=== PATIENT | male | born 1980 | race Caucasian/White ===

== ENCOUNTER 2022-04-27 08:03 | Outpatient (RCR) | payer OTHER, SELFPAY ==
--- NOTE | 2022-04-27 10:42 | PT.OPPOC ---
Physical, Occupational & Speech Therapy At [facility] Current Diagnoses Low back pain, unspecified (04/27/22) Visit Care Team Role Provider Type Tayla Adkins MD Family Provider Non-Staff Primary Care Provider Specialty: Medical Address: [address], [address] Email: Rojas Price DO Attending Provider Non-Staff Referring Provider Specialty: Medical Address: [facility], [address] [place] [address], [address] Phone: Email: Plan Of Care PT-OP-T Assessment and Plan Start: 04/26/22 16:45 Freq: Status: Active Protocol: Document 04/27/22 08:13 SAK (Rec: 04/27/22 08:51 SAK [id number]) Physical Therapy Assessment Rehab Potential Rehabilitation Potential Good Evaluation Complexity Number of Personal Factors/Comorbidities 1-2 Number of Body Systems Impaired 3 Clinical Presentation at Evaluation Evolving Impairments Impairments Balance,Pain,ROM,Strength Goals Four Impairment Oswestry disability index score 16% Fpc Goal (LTG) Decrease Oswestry score to no greater than 5% as measure of improved activity tolerance Three Impairment weakness in hips, core Short Term Goal (STG) Patient to be instructed in HEP to address muscle weakness and stab to support therapy activities in clinic. STG Duration 05/10/22 Fpc Goal (LTG) Patient to demonstrate 5/5 muscle strength all hip and core muscle groups LTG Duration 06/25/22 Two Impairment postural dysfunction contributing to pain Short Term Goal (STG) Patient to be instructed in neutral postural alignment, and contribution of postural dysfunction to pain STG Duration 05/10/22 Fpc Goal (LTG) Patient to self-identify postural habits and positioning which may be contributing to pain and be able to self-correct posture and demonstrate good progress toward change of habits for improved function LTG Duration 06/25/22 One Impairment lumbar spine and right hip pain as high as 3/10 Operations Agent Goal (LTG) Decrease pain level to 0-1/10 with all usual activities LTG Duration 06/25/22 Assessment Summary Assessment Patient presents to PT with function-limiting LBP and right hip pain of gradual onset. Wants to decrease his pain learn exercises to self- manage, and know what to do to prevent back pain in the future. PT evaluation reveals postural dysfunction: posterior positioning of thorax on pelvis, forward head , rounded shoulders, hyperextended knees, genu varum, ER left LE, dec arch height. Decreased strength right hip abductiors, tightness isaac quads and hip flexors. Patient spends a lot of time sitting for work, and discussed possible benefits of sit to stand desk for use at work. Feel source of patient's pain is musculoskeletal with muscle asymmetries, postural dysfunction, likely positional and movement habits. Feel he would benefit from PT to decrease his pain, improve his posture and address musculature asymmetries. POC discussed and he is in agreement. Physical Therapy Plan Frequency and Duration Frequency of Treatment 12 visits Duration of treatment (weeks) 8 Plan of Care Start Date 04/27/22 Plan of Care End Date 06/24/22 Therapeutic Interventions Therapeutic Interventions Home Exercise Program,Manual Therapy,Patient/Caregiver Education,Self-Care/Home Management,Soft Tissue Mobilization,Taping, Therapeutic Activities, Therapeutic Exercises Modalities Cold Pack/Ice Massage,Electric Stimulation,Hot Packs, Ultrasound Next Visit Focus/Plan Next Note Type Treatment Note Next Visit Plan Review HEP, continue strengthening and flexibility exercise progression. Review self-examination of positioning and body mechanics with patient education as indicated. Plan of Care Dates Plan of Care Start Date 04/27/22 Plan of Care End Date 06/24/22 Electronically Signed by: Mckenzie Gilmore, PT 05/01/22 [id number] If you are in agreement with this Plan of Care, please return a signed and dated copy. I have reviewed this Plan of Care and certify that the skilled therapy services above are required to meet the patient?s needs. Physician Signature Date Printed Name and Credentials Clinical Instructor Signature Printed Name and Credentials
--- NOTE | 2022-04-27 10:42 | PT.OIE ---
Current Diagnoses Low back pain, unspecified (04/27/22) Visit Care Team Role Provider Type Tayla Adkins MD Family Provider Non-Staff Primary Care Provider Specialty: Medical Address: [address], [address] Email: Rojas Price DO Attending Provider Non-Staff Referring Provider Specialty: Medical Address: [facility], [address] [place] [address], [address] Phone: Email: Physical Therapy Initial Evaluation PT-OP-A Visit Information Start: 04/26/22 16:45 Freq: Status: Active Protocol: Document 04/27/22 08:13 SAK (Rec: 04/27/22 08:51 SAK [id number]) Out-Patient Physical Therapy Visit Information Visit Information Visit Type Initial Evaluation Visit Start Time 08:15 Visit Stop Time 09:00 Total Visit Minutes 45 Visit Number 1 Evaluation Information Evaluation Date 04/27/22 PT-OP-B Current Condition Start: 04/26/22 16:45 Freq: Status: Active Protocol: Document 04/27/22 08:13 SAK (Rec: 04/27/22 08:51 SAK [id number]) Current Condition History of Current Condition Onset Date 2 years Current Complaints pain low back and right hip History of Current Condition gradual onset dull achey pain low back and right lateral hip no known cause. 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 Activity level/exercise: jog 1x/wk, pushups and pull ups 2x/wk, squats. Sleeps on side. When it hurts tries to stretch, change position. Prior Treatments and Tests No imaging. 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 [employer] Current Functional Impairments (Reported) Functional Limitations- ADL's painful Functional Limitations- Mobility/Gait painful Functional Limitations- Work/School painful especially prolonged sitting Personal Factors Other Personal Factors That May Effect Patient spends a lot of time Therapy/Recovery sitting PT-OP-C Subjective Start: 04/26/22 16:45 Freq: Status: Active Protocol: Document 04/27/22 08:14 SAK (Rec: 05/01/22 10:39 [facility] [id number]) Patient Questionnaires Oswestry Low Back Index Oswestry Score 16 OP-PT Pain Assessment Pain Assessment Grid Paper Pain Assessment Grid Completed Yes Location right lateral hip, l/s Intensity 4 Description Aching,Pressure Frequency Frequent Pain Alleviating Factors Rest Home Pain Medication Use Pain Medications Used No PT-OP-H Neuro Start: 04/26/22 16:45 Freq: Status: Active Protocol: Document 04/27/22 08:14 [facility] (Rec: 05/01/22 10:39 [facility] [id number]) Sensation Evaluation Gross Sensation Gross Sensation WNL PT-OP-J Posture/Palpation/Skin Start: 04/26/22 16:45 Freq: Status: Active Protocol: Document 04/27/22 08:14 [facility] (Rec: 05/01/22 10:39 [facility] [id number]) Posture Evaluation Position Standing Head/C-Spine Posture Forward Head T-Spine Posture Increased Kyphosis L-Spine Posture Increased Lordosis Weight Distribution Weight Shifted Posterior Hip Posture (R) Externally Rotated Knee Posture (R) Genu Varus Ankle/Foot Posture (L) Pronated,(R) Pronated Palpation Assessment Location lumbar spine Palpation Findings Soft Tissue Tightness, Tenderness Palpation Details right lumbar paraspinals PT-OP-K Range of Motion Start: 04/26/22 16:45 Freq: Status: Active Protocol: Document 04/27/22 08:14 [facility] (Rec: 05/01/22 10:39 [facility] [id number]) Hip Goniometric Range of Motion Hip isaac Hip ROM WFL No Comments mod tightness quads and hip flex PT-OP-M Strength Start: 04/26/22 16:45 Freq: Status: Active Protocol: Document 04/27/22 08:14 [facility] (Rec: 05/01/22 10:39 [facility] [id number]) Hip Strength Hip Manual Muscle Testing Right Flexion (L2) 4 Good Extension (S1) 4- Good- Abduction 4- Good- Adduction 4+ Good+ External Rotation 4- Good- Internal Rotation 4+ Good+ Left Flexion (L2) 4+ Good+ Extension (S1) 4 Good Abduction 4+ Good+ Adduction 4+ Good+ External Rotation 4 Good Internal Rotation 4+ Good+ Knee Strength Knee Manual Muscle Testing isaac Flexion (S2) 5 Normal Extension (L3) 5 Normal PT-OP-Q Treatments Start: 04/26/22 16:45 Freq: Status: Active Protocol: Document 04/27/22 08:14 SAK (Rec: 05/01/22 10:39 [facility] [id number]) Self-Care/Home Management Treatment Education Patient Education Home Exercise Program,Pain Management,Posture Other Education educated in typical contribution to pain of postural and positional asymmetries and movements, and recommended self-examination; patient demonstrated good understanding and agreement. Discussed benefits of sit to stand desk. PT-OP-T Assessment and Plan Start: 04/26/22 16:45 Freq: Status: Active Protocol: Document 04/27/22 08:13 SAK (Rec: 04/27/22 08:51 [facility] [id number]) Physical Therapy Assessment Rehab Potential Rehabilitation Potential Good Evaluation Complexity Number of Personal Factors/Comorbidities 1-2 Number of Body Systems Impaired 3 Clinical Presentation at Evaluation Evolving Impairments Impairments Balance,Pain,ROM,Strength Goals Four Impairment Oswestry disability index score 16% Intermediate Goal (LTG) Decrease Oswestry score to no greater than 5% as measure of improved activity tolerance Three Impairment weakness in hips, core Short Term Goal (STG) Patient to be instructed in HEP to address muscle weakness and stab to support therapy activities in clinic. STG Duration 05/10/22 City Plant Supervisor Goal (LTG) Patient to demonstrate 5/5 muscle strength all hip and core muscle groups LTG Duration 06/25/22 Two Impairment postural dysfunction contributing to pain Short Term Goal (STG) Patient to be instructed in neutral postural alignment, and contribution of postural dysfunction to pain STG Duration 05/10/22 Intermediate Goal (LTG) Patient to self-identify postural habits and positioning which may be contributing to pain and be able to self-correct posture and demonstrate good progress toward change of habits for improved function LTG Duration 06/25/22 One Impairment lumbar spine and right hip pain as high as 3/10 Intermediate Goal (LTG) Decrease pain level to 0-1/10 with all usual activities LTG Duration 06/25/22 Assessment Summary Assessment Patient presents to PT with function-limiting LBP and right hip pain of gradual onset. Wants to decrease his pain learn exercises to self- manage, and know what to do to prevent back pain in the future. PT evaluation reveals postural dysfunction: posterior positioning of thorax on pelvis, forward head , rounded shoulders, hyperextended knees, genu varum, ER left LE, dec arch height. Decreased strength right hip abductiors, tightness isaac quads and hip flexors. Patient spends a lot of time sitting for work, and discussed possible benefits of sit to stand desk for use at work. Feel source of patient's pain is musculoskeletal with muscle asymmetries, postural dysfunction, likely positional and movement habits. Feel he would benefit from PT to decrease his pain, improve his posture and address musculature asymmetries. POC discussed and he is in agreement. Physical Therapy Plan Frequency and Duration Frequency of Treatment 12 visits Duration of treatment (weeks) 8 Plan of Care Start Date 04/27/22 Plan of Care End Date 06/24/22 Therapeutic Interventions Therapeutic Interventions Home Exercise Program,Manual Therapy,Patient/Caregiver Education,Self-Care/Home Management,Soft Tissue Mobilization,Taping, Therapeutic Activities, Therapeutic Exercises Modalities Cold Pack/Ice Massage,Electric Stimulation,Hot Packs, Ultrasound Next Visit Focus/Plan Next Note Type Treatment Note Next Visit Plan Review HEP, continue strengthening and flexibility exercise progression. Review self-examination of positioning and body mechanics with patient education as indicated.
--- NOTE | 2022-05-01 10:42 | PT.OIE ---
Current Diagnoses Low back pain, unspecified (04/27/22) Visit Care Team Role Provider Type Tayla Adkins MD Family Provider Non-Staff Primary Care Provider Specialty: Medical Address: [address], [address] Email: Rojas Price DO Attending Provider Non-Staff Referring Provider Specialty: Medical Address: [facility], [address] [place] [address], [address] Phone: Email: Physical Therapy Initial Evaluation PT-OP-A Visit Information Start: 04/26/22 16:45 Freq: Status: Active Protocol: Document 04/27/22 08:13 SAK (Rec: 04/27/22 08:51 SAK [id number]) Out-Patient Physical Therapy Visit Information Visit Information Visit Type Initial Evaluation Visit Start Time 08:15 Visit Stop Time 09:00 Total Visit Minutes 45 Visit Number 1 Evaluation Information Evaluation Date 04/27/22 PT-OP-B Current Condition Start: 04/26/22 16:45 Freq: Status: Active Protocol: Document 04/27/22 08:13 SAK (Rec: 04/27/22 08:51 SAK [id number]) Current Condition History of Current Condition Onset Date 2 years Current Complaints pain low back and right hip History of Current Condition gradual onset dull achey pain low back and right lateral hip no known cause. 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 Activity level/exercise: jog 1x/wk, pushups and pull ups 2x/wk, squats. Sleeps on side. When it hurts tries to stretch, change position. Prior Treatments and Tests No imaging. 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 [employer] Current Functional Impairments (Reported) Functional Limitations- ADL's painful Functional Limitations- Mobility/Gait painful Functional Limitations- Work/School painful especially prolonged sitting Personal Factors Other Personal Factors That May Effect Patient spends a lot of time Therapy/Recovery sitting PT-OP-C Subjective Start: 04/26/22 16:45 Freq: Status: Active Protocol: Document 04/27/22 08:14 SAK (Rec: 05/01/22 10:39 [facility] [id number]) Patient Questionnaires Oswestry Low Back Index Oswestry Score 16 OP-PT Pain Assessment Pain Assessment Grid Paper Pain Assessment Grid Completed Yes Location right lateral hip, l/s Intensity 4 Description Aching,Pressure Frequency Frequent Pain Alleviating Factors Rest Home Pain Medication Use Pain Medications Used No PT-OP-H Neuro Start: 04/26/22 16:45 Freq: Status: Active Protocol: Document 04/27/22 08:14 [facility] (Rec: 05/01/22 10:39 [facility] [id number]) Sensation Evaluation Gross Sensation Gross Sensation WNL PT-OP-J Posture/Palpation/Skin Start: 04/26/22 16:45 Freq: Status: Active Protocol: Document 04/27/22 08:14 [facility] (Rec: 05/01/22 10:39 [facility] [id number]) Posture Evaluation Position Standing Head/C-Spine Posture Forward Head T-Spine Posture Increased Kyphosis L-Spine Posture Increased Lordosis Weight Distribution Weight Shifted Posterior Hip Posture (R) Externally Rotated Knee Posture (R) Genu Varus Ankle/Foot Posture (L) Pronated,(R) Pronated Palpation Assessment Location lumbar spine Palpation Findings Soft Tissue Tightness, Tenderness Palpation Details right lumbar paraspinals PT-OP-K Range of Motion Start: 04/26/22 16:45 Freq: Status: Active Protocol: Document 04/27/22 08:14 [facility] (Rec: 05/01/22 10:39 [facility] [id number]) Hip Goniometric Range of Motion Hip isaac Hip ROM WFL No Comments mod tightness quads and hip flex PT-OP-M Strength Start: 04/26/22 16:45 Freq: Status: Active Protocol: Document 04/27/22 08:14 [facility] (Rec: 05/01/22 10:39 [facility] [id number]) Hip Strength Hip Manual Muscle Testing Right Flexion (L2) 4 Good Extension (S1) 4- Good- Abduction 4- Good- Adduction 4+ Good+ External Rotation 4- Good- Internal Rotation 4+ Good+ Left Flexion (L2) 4+ Good+ Extension (S1) 4 Good Abduction 4+ Good+ Adduction 4+ Good+ External Rotation 4 Good Internal Rotation 4+ Good+ Knee Strength Knee Manual Muscle Testing isaac Flexion (S2) 5 Normal Extension (L3) 5 Normal PT-OP-Q Treatments Start: 04/26/22 16:45 Freq: Status: Active Protocol: Document 04/27/22 08:14 SAK (Rec: 05/01/22 10:39 [facility] [id number]) Self-Care/Home Management Treatment Education Patient Education Home Exercise Program,Pain Management,Posture Other Education educated in typical contribution to pain of postural and positional asymmetries and movements, and recommended self-examination; patient demonstrated good understanding and agreement. Discussed benefits of sit to stand desk. PT-OP-T Assessment and Plan Start: 04/26/22 16:45 Freq: Status: Active Protocol: Document 04/27/22 08:13 SAK (Rec: 04/27/22 08:51 [facility] [id number]) Physical Therapy Assessment Rehab Potential Rehabilitation Potential Good Evaluation Complexity Number of Personal Factors/Comorbidities 1-2 Number of Body Systems Impaired 3 Clinical Presentation at Evaluation Evolving Impairments Impairments Balance,Pain,ROM,Strength Goals Four Impairment Oswestry disability index score 16% Fpc Goal (LTG) Decrease Oswestry score to no greater than 5% as measure of improved activity tolerance Three Impairment weakness in hips, core Short Term Goal (STG) Patient to be instructed in HEP to address muscle weakness and stab to support therapy activities in clinic. STG Duration 05/10/22 Damper Fitter Goal (LTG) Patient to demonstrate 5/5 muscle strength all hip and core muscle groups LTG Duration 06/25/22 Two Impairment postural dysfunction contributing to pain Short Term Goal (STG) Patient to be instructed in neutral postural alignment, and contribution of postural dysfunction to pain STG Duration 05/10/22 Fpc Goal (LTG) Patient to self-identify postural habits and positioning which may be contributing to pain and be able to self-correct posture and demonstrate good progress toward change of habits for improved function LTG Duration 06/25/22 One Impairment lumbar spine and right hip pain as high as 3/10 Fpc Goal (LTG) Decrease pain level to 0-1/10 with all usual activities LTG Duration 06/25/22 Assessment Summary Assessment Patient presents to PT with function-limiting LBP and right hip pain of gradual onset. Wants to decrease his pain learn exercises to self- manage, and know what to do to prevent back pain in the future. PT evaluation reveals postural dysfunction: posterior positioning of thorax on pelvis, forward head , rounded shoulders, hyperextended knees, genu varum, ER left LE, dec arch height. Decreased strength right hip abductiors, tightness isaac quads and hip flexors. Patient spends a lot of time sitting for work, and discussed possible benefits of sit to stand desk for use at work. Feel source of patient's pain is musculoskeletal with muscle asymmetries, postural dysfunction, likely positional and movement habits. Feel he would benefit from PT to decrease his pain, improve his posture and address musculature asymmetries. POC discussed and he is in agreement. Physical Therapy Plan Frequency and Duration Frequency of Treatment 12 visits Duration of treatment (weeks) 8 Plan of Care Start Date 04/27/22 Plan of Care End Date 06/24/22 Therapeutic Interventions Therapeutic Interventions Home Exercise Program,Manual Therapy,Patient/Caregiver Education,Self-Care/Home Management,Soft Tissue Mobilization,Taping, Therapeutic Activities, Therapeutic Exercises Modalities Cold Pack/Ice Massage,Electric Stimulation,Hot Packs, Ultrasound Next Visit Focus/Plan Next Note Type Treatment Note Next Visit Plan Review HEP, continue strengthening and flexibility exercise progression. Review self-examination of positioning and body mechanics with patient education as indicated.
--- NOTE | 2022-05-11 08:56 | PT-OP ANOTE ---
cancelled due to unable to make appointment time
--- NOTE | 2022-11-09 13:03 | PT.OPDS ---
Current Diagnoses Low back pain, unspecified (04/27/22) Visit Care Team Role Provider Type Tayla Adkins MD Family Provider Non-Staff Primary Care Provider Specialty: Medical Address: [address], [address] Email: Rojas Price DO Attending Provider Non-Staff Referring Provider Specialty: Medical Address: [facility], [address] [place] [address], [address] Phone: Email: Visit Number Visit Number 1 Discharge Summary PT-OP-B Current Condition Start: 04/26/22 16:45 Freq: Status: Active Protocol: Document 04/27/22 08:13 SAK (Rec: 04/27/22 08:51 [facility] [id number]) Current Condition History of Current Condition Onset Date 2 years Current Complaints pain low back and right hip History of Current Condition gradual onset dull achey pain low back and right lateral hip no known cause. 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 Activity level/exercise: jog 1x/wk, pushups and pull ups 2x/wk, squats. Sleeps on side. When it hurts tries to stretch, change position. Prior Treatments and Tests No imaging. 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 [employer] Current Functional Impairments (Reported) Functional Limitations- ADL's painful Functional Limitations- Mobility/Gait painful Functional Limitations- Work/School painful especially prolonged sitting Personal Factors Other Personal Factors That May Effect Patient spends a lot of time Therapy/Recovery sitting PT-OP-C Subjective Start: 04/26/22 16:45 Freq: Status: Active Protocol: Document 04/27/22 08:14 SAK (Rec: 05/01/22 10:39 SAK [id number]) Patient Questionnaires Oswestry Low Back Index Oswestry Score 16 OP-PT Pain Assessment Pain Assessment Grid Paper Pain Assessment Grid Completed Yes Location right lateral hip, l/s Intensity 4 Description Aching,Pressure Frequency Frequent Pain Alleviating Factors Rest Home Pain Medication Use Pain Medications Used No PT-OP-H Neuro Start: 04/26/22 16:45 Freq: Status: Active Protocol: Document 04/27/22 08:14 [facility] (Rec: 05/01/22 10:39 [facility] [id number]) Sensation Evaluation Gross Sensation Gross Sensation WNL PT-OP-J Posture/Palpation/Skin Start: 04/26/22 16:45 Freq: Status: Active Protocol: Document 04/27/22 08:14 [facility] (Rec: 05/01/22 10:39 [facility] [id number]) Posture Evaluation Position Standing Head/C-Spine Posture Forward Head T-Spine Posture Increased Kyphosis L-Spine Posture Increased Lordosis Weight Distribution Weight Shifted Posterior Hip Posture (R) Externally Rotated Knee Posture (R) Genu Varus Ankle/Foot Posture (L) Pronated,(R) Pronated Palpation Assessment Location lumbar spine Palpation Findings Soft Tissue Tightness, Tenderness Palpation Details right lumbar paraspinals PT-OP-K Range of Motion Start: 04/26/22 16:45 Freq: Status: Active Protocol: Document 04/27/22 08:14 [facility] (Rec: 05/01/22 10:39 [facility] [id number]) Hip Goniometric Range of Motion Hip isaac Hip ROM WFL No Comments mod tightness quads and hip flex PT-OP-M Strength Start: 04/26/22 16:45 Freq: Status: Active Protocol: Document 04/27/22 08:14 [facility] (Rec: 05/01/22 10:39 [facility] [id number]) Hip Strength Hip Manual Muscle Testing Right Flexion (L2) 4 Good Extension (S1) 4- Good- Abduction 4- Good- Adduction 4+ Good+ External Rotation 4- Good- Internal Rotation 4+ Good+ Left Flexion (L2) 4+ Good+ Extension (S1) 4 Good Abduction 4+ Good+ Adduction 4+ Good+ External Rotation 4 Good Internal Rotation 4+ Good+ Knee Strength Knee Manual Muscle Testing isaac Flexion (S2) 5 Normal Extension (L3) 5 Normal PT-OP-T Assessment and Plan Start: 04/26/22 16:45 Freq: Status: Active Protocol: Document 11/09/22 13:02 SAK (Rec: 11/09/22 13:03 [facility] [id number]) Physical Therapy Plan Discharge Physical Therapy Discharge Reasons No Longer Attending PT
== END 2022-11-15 16:10 | disposition home or self-care (01) ==
LOC: PHYS 08:03
PROVIDERS: Family Provider Student in an Organized Health Care Education/Training Program; PCP Student in an Organized Health Care Education/Training Program; Referring Provider Preventive Medicine Aerospace Medicine; Visit Provider Preventive Medicine Aerospace Medicine
DX: M54.50 Low back pain, unspecified (principal)
CPT/HCPCS: 97161; 97535

== ENCOUNTER 2023-08-31 08:15 | Outpatient (RCR) | payer OTHER, SELFPAY ==
--- NOTE | 2023-07-23 16:33 | PT.OIE ---
Current Diagnoses Pain in right hip (07/23/23) Low back pain, unspecified (07/23/23) Abnormal posture (07/23/23) Weakness (07/23/23) Visit Care Team Role Provider Type Tayla Adkins MD Attending Provider Non-Staff Family Provider Primary Care Provider Referring Provider Specialty: Medical Address: [address], [address] Email: Physical Therapy Initial Evaluation PT-OP-A Visit Information Start: 07/23/23 08:04 Freq: Status: Active Protocol: Document 07/23/23 08:13 SAK (Rec: 07/23/23 09:08 SAK [id number]) Out-Patient Physical Therapy Visit Information Visit Information Visit Type Initial Evaluation Visit Start Time 08:15 Visit Number 1 Evaluation Information Evaluation Date 07/23/23 PT-OP-B Current Condition Start: 07/23/23 08:04 Freq: Status: Active Protocol: Document 07/23/23 08:13 SAK (Rec: 07/23/23 09:08 SAK [id number]) Current Condition History of Current Condition Onset Date 2 years Current Complaints LBP, right hip pain History of Current Condition HIstory LBP and right hip pain . No precipitating even. Potentially exercise induced; gets worse when more active. Sometimes interrups sleep, stretching improves it a little. Right famur fracture 6th grade. 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 Reports feels hip very tight especially laterally. Massage at lateral posterior hips dec pain. Denies N/T. Pain ranges from 3-7. Also strained tendon left foot, has ordered custom orthotics for feet. Prior Treatments and Tests 1 episode PT. Treatment Goals Patient/Caregiver Goals Dec pain, improve sleep and function. Would like to run 10k or 1/2 marathon, lift weights without an increase in pain. PT-OP-C Subjective Start: 07/23/23 08:04 Freq: Status: Active Protocol: Document 07/23/23 08:13 SAK (Rec: 07/23/23 16:32 SAK [id number]) OP-PT Pain Assessment Home Pain Medication Use Pain Medications Used No Pain Behaviors Pain Behaviors Facial Grimacing PT-OP-D Balance Start: 07/23/23 08:04 Freq: Status: Active Protocol: Document 07/23/23 08:13 SAK (Rec: 07/23/23 16:32 SAK [id number]) OP-PT Balance Assessment Sitting Balance Static Sitting Balance Ability Normal Dynamic Sitting Balance Ability Normal Standing Balance Static Standing Balance Ability Normal Dynamic Standing Balance Ability Normal Shipley Fall Scale Copyright Permission PT-OP-G Mobility & Gait Start: 07/23/23 08:04 Freq: Status: Active Protocol: Document 07/23/23 08:13 SAK (Rec: 07/23/23 16:32 SAK [id number]) OP Gait Assessment Gait Gait Assistance Required: Independent Assistive Devices Assistive Device None PT-OP-H Neuro Start: 07/23/23 08:04 Freq: Status: Active Protocol: Document 07/23/23 08:13 SAK (Rec: 07/23/23 16:32 SAK [id number]) Sensation Evaluation Gross Sensation Gross Sensation WNL PT-OP-J Posture/Palpation/Skin Start: 07/23/23 08:04 Freq: Status: Active Protocol: Document 07/23/23 08:13 SAK (Rec: 07/23/23 09:08 SAK [id number]) Posture Evaluation Position Standing Head/C-Spine Posture Forward Head T-Spine Posture Increased Kyphosis Pelvis Posture Anteriorly Tilted Weight Distribution Weight Shifted Left Hip Posture (R) Externally Rotated,(R) Abducted Knee Posture (L) Genu Recurvatum,(R) Genu Recurvatum Palpation Assessment Location SI Palpation Findings Soft Tissue Tightness, Tenderness Palpation Details right PT-OP-K Range of Motion Start: 07/23/23 08:04 Freq: Status: Active Protocol: Document 07/23/23 08:13 SAK (Rec: 07/23/23 16:32 [facility] [id number]) Hip Goniometric Range of Motion Hip Right Flexion w/Knee Flexed 100 Straight Leg Raise 55 Extension 15 Abduction 25 Internal Rotation 35 External Rotation 40 Left Flexion w/Knee Flexed 100 Straight Leg Raise 65 Extension 15 Abduction 40 Internal Rotation 25 External Rotation 40 Hip ROM Limitations Hip ROM Limitations Soft Tissue Tightness Knee Goniometric Range of Motion Knee isaac Knee ROM WFL Yes PT-OP-L Special Tests Start: 07/23/23 08:04 Freq: Status: Active Protocol: Document 07/23/23 08:13 SAK (Rec: 07/23/23 16:32 SAK [id number]) Special Tests Lumbar Spine Special Tests Straight Leg Raise Test Results - Compression Test Results - Standing Flexion Test Results - Other Special Tests Special Tests SI gapping decreased pain on right PT-OP-M Strength Start: 07/23/23 08:04 Freq: Status: Active Protocol: Document 07/23/23 08:13 [facility] (Rec: 07/23/23 09:08 [facility] [id number]) Trunk Strength Trunk Manual Muscle Testing Flexion 4 Good Extension 4 Good Hip Strength Hip Manual Muscle Testing Left Flexion (L2) 4- Good- Extension (S1) 4- Good- Abduction 4+ Good+ Adduction 4+ Good+ External Rotation 4+ Good+ Internal Rotation 4+ Good+ Right Flexion (L2) 4+ Good+ Extension (S1) 4- Good- Abduction 4 Good Adduction 4+ Good+ External Rotation 4 Good Internal Rotation 4 Good Knee Strength Knee Manual Muscle Testing isaac Flexion (S2) 5 Normal Extension (L3) 5 Normal PT-OP-Q Treatments Start: 07/23/23 08:04 Freq: Status: Active Protocol: Document 07/23/23 08:13 [facility] (Rec: 07/23/23 16:32 [facility] [id number]) Self-Care/Home Management Treatment Education Patient Education Body Mechanics,Home Exercise Program,Posture Other Education bed positioning including pillow under entire top leg, and towel under waist; reports feeling of improved support and comfort issued written HEP HO PT-OP-T Assessment and Plan Start: 07/23/23 08:04 Freq: Status: Active Protocol: Document 07/23/23 08:13 [facility] (Rec: 07/23/23 16:32 [facility] [id number]) Physical Therapy Assessment Rehab Potential Rehabilitation Potential Good Evaluation Complexity Number of Personal Factors/Comorbidities 1-2 Number of Body Systems Impaired 3 Clinical Presentation at Evaluation Evolving Impairments Impairments Activity Tolerance,Functional Activities,Pain,Posture,Soft Tissue Mobility Goals Three Impairment muscular imbalances Short Term Goal (STG) Patient to be instructed in individualized progressive HEP for purposes of flexibility and strengthening STG Duration 08/22/23 Change Management Specialist Goal (LTG) Patient to demonstrate LE and lumbar flexibility WNL and strength to 08/11 to allow him to return to prior level of function Two Impairment postural dysfunction Impairment posterior positioning of thorax, exces ER right hip, dec right LE weight-bearing, posterior rotated innominate Short Term Goal (STG) Patient able to self-correct posture with min cues and do self assessment of habitual positioning and movement that may be contributory to pain STG Duration 08/22/23 Skilled Nursing Goal (LTG) Patient able to achieve neutral postural alignment and demonstrate ability to self- correct pelvic alignment as needed LTG Duration 09/22/23 One Impairment Decreased functional activity tolerance Impairment Oswestrsy disability index score 18% Short Term Goal (STG) Decrease Oswestry score to no greater than 9% as measure of improved activity toerance STG Duration 08/22/23 Skilled Nursing Goal (LTG) Decrease Oswestry disability index score to no greater than 4% as measure of improved activity tolerance and return to prior level of function including sleeping without pain, jogging, and lifting weights without pain. LTG Duration 09/22/23 Assessment Summary Assessment Patient presents to PT with function-limiting pain in his low back and right hip of a chronic nature with no known cause, gradual progression. The pain interrupts his sleep and keeps him from doing usual physical activity due to increased pain with physical activity. Patient denies numbness or tingling. 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 Evaluation reveals postural dysfunction with post rotated right innominate, ER right LE, weakness throughout hips and lumbar spine, decreased hip and low back flexibility. Posterior gapping of his right SI decreased pain. He has poor accessory motion in isaac hips right greater than left. FEel he would benefit from physical therapy to improve his muscle imbalances and posture, and help him to return to prior level of function including ability to jog without an increase in pain, and to not be woken due to pain. . Patient is highly motivated. POC was discussed and he was in agreement. Physical Therapy Plan Frequency and Duration Frequency of Treatment 2x/Week Duration of treatment (weeks) 8 Plan of Care Start Date 07/23/23 Plan of Care End Date 09/22/23 Therapeutic Interventions Therapeutic Interventions Home Exercise Program,Joint Mobilizations,Manual Therapy, Patient/Caregiver Education, Self-Care/Home Management,Soft Tissue Mobilization,Taping, Therapeutic Activities, Therapeutic Exercises Modalities Cold Pack/Ice Massage,Electric Stimulation,Hot Packs, Infrared Therapy,Traction- Mechanical,Ultrasound Next Visit Focus/Plan Next Note Type Treatment Note Next Visit Plan Review HEP, provide manual therapy to improve pelvic alignment and decrease soft tissue tension right SI. Progress ther ex as tolerated. Modalities PRN pain.
--- NOTE | 2023-07-23 16:33 | PT.OPPOC ---
Physical, Occupational & Speech Therapy At [facility] Current Diagnoses Pain in right hip (07/23/23) Low back pain, unspecified (07/23/23) Abnormal posture (07/23/23) Weakness (07/23/23) Visit Care Team Role Provider Type Tayla Adkins MD Attending Provider Non-Staff Family Provider Primary Care Provider Referring Provider Specialty: Medical Address: [address], [address] Email: Plan Of Care PT-OP-T Assessment and Plan Start: 07/23/23 08:04 Freq: Status: Active Protocol: Document 07/23/23 08:13 [facility]LA[facility] (Rec: 07/23/23 16:32 SAK [id number]) Physical Therapy Assessment Rehab Potential Rehabilitation Potential Good Evaluation Complexity Number of Personal Factors/Comorbidities 1-2 Number of Body Systems Impaired 3 Clinical Presentation at Evaluation Evolving Impairments Impairments Activity Tolerance,Functional Activities,Pain,Posture,Soft Tissue Mobility Goals Three Impairment muscular imbalances Short Term Goal (STG) Patient to be instructed in individualized progressive HEP for purposes of flexibility and strengthening STG Duration 08/22/23 Enrollment Specialist Goal (LTG) Patient to demonstrate LE and lumbar flexibility WNL and strength to 08/11 to allow him to return to prior level of function Two Impairment postural dysfunction Impairment posterior positioning of thorax, exces ER right hip, dec right LE weight-bearing, posterior rotated innominate Short Term Goal (STG) Patient able to self-correct posture with min cues and do self assessment of habitual positioning and movement that may be contributory to pain STG Duration 08/22/23 Longterm Goal (LTG) Patient able to achieve neutral postural alignment and demonstrate ability to self- correct pelvic alignment as needed LTG Duration 09/22/23 One Impairment Decreased functional activity tolerance Impairment Oswestrsy disability index score 18% Short Term Goal (STG) Decrease Oswestry score to no greater than 9% as measure of improved activity toerance STG Duration 08/22/23 Longterm Goal (LTG) Decrease Oswestry disability index score to no greater than 4% as measure of improved activity tolerance and return to prior level of function including sleeping without pain, jogging, and lifting weights without pain. LTG Duration 09/22/23 Assessment Summary Assessment Patient presents to PT with function-limiting pain in his low back and right hip of a chronic nature with no known cause, gradual progression. The pain interrupts his sleep and keeps him from doing usual physical activity due to increased pain with physical activity. Patient denies numbness or tingling. 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 Evaluation reveals postural dysfunction with post rotated right innominate, ER right LE, weakness throughout hips and lumbar spine, decreased hip and low back flexibility. Posterior gapping of his right SI decreased pain. He has poor accessory motion in isaac hips right greater than left. FEel he would benefit from physical therapy to improve his muscle imbalances and posture, and help him to return to prior level of function including ability to jog without an increase in pain, and to not be woken due to pain. . Patient is highly motivated. POC was discussed and he was in agreement. Physical Therapy Plan Frequency and Duration Frequency of Treatment 2x/Week Duration of treatment (weeks) 8 Plan of Care Start Date 07/23/23 Plan of Care End Date 09/22/23 Therapeutic Interventions Therapeutic Interventions Home Exercise Program,Joint Mobilizations,Manual Therapy, Patient/Caregiver Education, Self-Care/Home Management,Soft Tissue Mobilization,Taping, Therapeutic Activities, Therapeutic Exercises Modalities Cold Pack/Ice Massage,Electric Stimulation,Hot Packs, Infrared Therapy,Traction- Mechanical,Ultrasound Next Visit Focus/Plan Next Note Type Treatment Note Next Visit Plan Review HEP, provide manual therapy to improve pelvic alignment and decrease soft tissue tension right SI. Progress ther ex as tolerated. Modalities PRN pain. Plan of Care Dates Plan of Care Start Date 07/23/23 Plan of Care End Date 09/22/23 Electronically Signed by: Mckenzie Gilmore, PT 07/23/23 5738 If you are in agreement with this Plan of Care, please return a signed and dated copy. I have reviewed this Plan of Care and certify that the skilled therapy services above are required to meet the patient?s needs. Physician Signature Date Printed Name and Credentials Clinical Instructor Signature Printed Name and Credentials
--- NOTE | 2023-07-26 09:06 | PT.OTN ---
Current Diagnoses Pain in right hip (07/26/23) Low back pain, unspecified (07/26/23) Abnormal posture (07/26/23) Weakness (07/26/23) Physical Therapy Treatment Note PT-OP-A Visit Information Start: 07/23/23 08:04 Freq: Status: Active Protocol: Document 07/26/23 08:11 SAK (Rec: 07/26/23 09:05 [facility] [id number]) Out-Patient Physical Therapy Visit Information Visit Information Visit Type Treatment Note Visit Start Time 08:15 Visit Stop Time 08:58 Visit Number 2 Evaluation Information Evaluation Date 07/23/23 PT-OP-B Current Condition Start: 07/23/23 08:04 Freq: Status: Active Protocol: Document 07/26/23 08:11 SAK (Rec: 07/26/23 09:05 [facility] [id number]) Current Condition History of Current Condition Onset Date 2 years Current Complaints LBP, right hip pain History of Current Condition HIstory LBP and right hip pain . No precipitating even. Potentially exercise induced; gets worse when more active. Sometimes interrups sleep, stretching improves it a little. Right famur fracture 6th grade. 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 Reports feels hip very tight especially laterally. Massage at lateral posterior hips dec pain. Denies N/T. Pain ranges from 3-7. Also strained tendon left foot, has ordered custom orthotics for feet. Prior Treatments and Tests 1 episode PT. Treatment Goals Patient/Caregiver Goals Dec pain, improve sleep and function. Would like to run 10k or 1/2 marathon, lift weights without an increase in pain. PT-OP-C Subjective Start: 07/23/23 08:04 Freq: Status: Active Protocol: Document 07/26/23 08:11 SAK (Rec: 07/26/23 09:05 [facility] [id number]) OP-PT Subjective Patient Comments Patient Comments Has orthotics coming in 6 weeks. States he raised his monitor at work for improved posture. Reports feeling weaker left hip flexor. PT-OP-D Balance Start: 07/23/23 08:04 Freq: Status: Active Protocol: Document 07/23/23 08:13 SAK (Rec: 07/23/23 16:32 SAK [id number]) OP-PT Balance Assessment Sitting Balance Static Sitting Balance Ability Normal Dynamic Sitting Balance Ability Normal Standing Balance Static Standing Balance Ability Normal Dynamic Standing Balance Ability Normal Shipley Fall Scale Copyright Permission PT-OP-G Mobility & Gait Start: 07/23/23 08:04 Freq: Status: Active Protocol: Document 07/23/23 08:13 SAK (Rec: 07/23/23 16:32 [facility] [id number]) OP Gait Assessment Gait Gait Assistance Required: Independent Assistive Devices Assistive Device None PT-OP-H Neuro Start: 07/23/23 08:04 Freq: Status: Active Protocol: Document 07/23/23 08:13 SAK (Rec: 07/23/23 16:32 SAK [id number]) Sensation Evaluation Gross Sensation Gross Sensation WNL PT-OP-J Posture/Palpation/Skin Start: 07/23/23 08:04 Freq: Status: Active Protocol: Document 07/23/23 08:13 SAK (Rec: 07/23/23 09:08 [facility] [id number]) Posture Evaluation Position Standing Head/C-Spine Posture Forward Head T-Spine Posture Increased Kyphosis Pelvis Posture Anteriorly Tilted Weight Distribution Weight Shifted Left Hip Posture (R) Externally Rotated,(R) Abducted Knee Posture (L) Genu Recurvatum,(R) Genu Recurvatum Palpation Assessment Location SI Palpation Findings Soft Tissue Tightness, Tenderness Palpation Details right PT-OP-K Range of Motion Start: 07/23/23 08:04 Freq: Status: Active Protocol: Document 07/23/23 08:13 SAK (Rec: 07/23/23 16:32 [facility] [id number]) Hip Goniometric Range of Motion Hip Right Flexion w/Knee Flexed 100 Straight Leg Raise 55 Extension 15 Abduction 25 Internal Rotation 35 External Rotation 40 Left Flexion w/Knee Flexed 100 Straight Leg Raise 65 Extension 15 Abduction 40 Internal Rotation 25 External Rotation 40 Hip ROM Limitations Hip ROM Limitations Soft Tissue Tightness Knee Goniometric Range of Motion Knee isaac Knee ROM WFL Yes PT-OP-L Special Tests Start: 07/23/23 08:04 Freq: Status: Active Protocol: Document 07/23/23 08:13 SAK (Rec: 07/23/23 16:32 [facility] [id number]) Special Tests Lumbar Spine Special Tests Straight Leg Raise Test Results - Compression Test Results - Standing Flexion Test Results - Other Special Tests Special Tests SI gapping decreased pain on right PT-OP-M Strength Start: 07/23/23 08:04 Freq: Status: Active Protocol: Document 07/23/23 08:13 [facility] (Rec: 07/23/23 09:08 [facility] [id number]) Trunk Strength Trunk Manual Muscle Testing Flexion 4 Good Extension 4 Good Hip Strength Hip Manual Muscle Testing Left Flexion (L2) 4- Good- Extension (S1) 4- Good- Abduction 4+ Good+ Adduction 4+ Good+ External Rotation 4+ Good+ Internal Rotation 4+ Good+ Right Flexion (L2) 4+ Good+ Extension (S1) 4- Good- Abduction 4 Good Adduction 4+ Good+ External Rotation 4 Good Internal Rotation 4 Good Knee Strength Knee Manual Muscle Testing isaac Flexion (S2) 5 Normal Extension (L3) 5 Normal PT-OP-Q Treatments Start: 07/23/23 08:04 Freq: Status: Active Protocol: Document 07/26/23 08:11 [facility] (Rec: 07/26/23 09:05 [facility] [id number]) Cardio Equipment Treadmill Duration (Minutes) 5 Speed 3 Therapeutic Exercises Supine Exercises bridge Supine Exercise Name with ball squeeze and single leg lift piriformis stretch Reps/Minutes 2x30 figure 4 Reps/Minutes 2x30 HS stretch Equipment Used strap Reps/Minutes 2x30 SKTC Reps/Minutes 2x30 Standing Exercises lift Standing Exercise Name 5x dbl, 5x single leg Reps/Minutes 5x Comments cues for form lunge Equipment Used mirror Reps/Minutes 10x Comments cues for form squat Equipment Used mirror Reps/Minutes 10x Comments cues for form Manual Therapy Treatment Joint Mobilizations right innominate Direction ant/med gapping Grade III Body Position Sidelying Comments reports dec pain Self-Care/Home Management Treatment Education Patient Education Body Mechanics,Home Exercise Program,Posture Other Education sit to stand alignment, PT-OP-T Assessment and Plan Start: 07/23/23 08:04 Freq: Status: Active Protocol: Document 07/26/23 08:11 [facility] (Rec: 07/26/23 09:05 [facility] [id number]) Physical Therapy Assessment Impairments Impairments Activity Tolerance,Functional Activities,Pain,Posture,Soft Tissue Mobility Goals Three Impairment muscular imbalances Short Term Goal (STG) Patient to be instructed in individualized progressive HEP for purposes of flexibility and strengthening STG Duration 08/22/23 Residential Goal (LTG) Patient to demonstrate LE and lumbar flexibility WNL and strength to 08/11 to allow him to return to prior level of function Two Impairment postural dysfunction Impairment posterior positioning of thorax, exces ER right hip, dec right LE weight-bearing, posterior rotated innominate Short Term Goal (STG) Patient able to self-correct posture with min cues and do self assessment of habitual positioning and movement that may be contributory to pain STG Duration 08/22/23 [employer] Goal (LTG) Patient able to achieve neutral postural alignment and demonstrate ability to self- correct pelvic alignment as needed LTG Duration 09/22/23 One Impairment Decreased functional activity tolerance Impairment Oswestrsy disability index score 18% Short Term Goal (STG) Decrease Oswestry score to no greater than 9% as measure of improved activity toerance STG Duration 08/22/23 Residential Goal (LTG) Decrease Oswestry disability index score to no greater than 4% as measure of improved activity tolerance and return to prior level of function including sleeping without pain, jogging, and lifting weights without pain. LTG Duration 09/22/23 Assessment Summary Assessment Patient required mod cues for correct alignment with squats and lunges due to excess ER, and with lift especially single leg due to rotation at hip and spine. Mirror for visual feedback helpful. Dec pain with mob right innominate. ADded to HEP with updated HO with good understanding. Physical Therapy Plan Frequency and Duration Frequency of Treatment 2x/Week Duration of treatment (weeks) 8 Plan of Care Start Date 07/23/23 Plan of Care End Date 09/22/23 Therapeutic Interventions Therapeutic Interventions Home Exercise Program,Joint Mobilizations,Manual Therapy, Patient/Caregiver Education, Self-Care/Home Management,Soft Tissue Mobilization,Taping, Therapeutic Activities, Therapeutic Exercises Modalities Cold Pack/Ice Massage,Electric Stimulation,Hot Packs, Infrared Therapy,Traction- Mechanical,Ultrasound Next Visit Focus/Plan Next Note Type Treatment Note Next Visit Plan Continue ther ex progression, use of mirror for correct form , manual techniques as indicated.
--- NOTE | 2023-07-31 08:14 | PT-OP ANOTE ---
cancelled due to work conflict
--- NOTE | 2023-08-07 10:18 | PT.OTN ---
Current Diagnoses Pain in right hip (08/07/23) Low back pain, unspecified (08/07/23) Abnormal posture (08/07/23) Weakness (08/07/23) Physical Therapy Treatment Note PT-OP-A Visit Information Start: 07/23/23 08:04 Freq: Status: Active Protocol: Document 08/07/23 08:03 SAK (Rec: 08/07/23 09:04 SAK [id number]) Out-Patient Physical Therapy Visit Information Visit Information Visit Type Treatment Note Visit Start Time 08:15 Visit Number 3 Evaluation Information Evaluation Date 07/23/23 PT-OP-B Current Condition Start: 07/23/23 08:04 Freq: Status: Active Protocol: Document 08/07/23 08:03 SAK (Rec: 08/07/23 09:04 SAK [id number]) Current Condition History of Current Condition Onset Date 2 years Current Complaints LBP, right hip pain History of Current Condition HIstory LBP and right hip pain . No precipitating even. Potentially exercise induced; gets worse when more active. Sometimes interrups sleep, stretching improves it a little. Right famur fracture 6th grade. 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 Reports feels hip very tight especially laterally. Massage at lateral posterior hips dec pain. Denies N/T. Pain ranges from 3-7. Also strained tendon left foot, has ordered custom orthotics for feet. Prior Treatments and Tests 1 episode PT. Treatment Goals Patient/Caregiver Goals Dec pain, improve sleep and function. Would like to run 10k or 1/2 marathon, lift weights without an increase in pain. PT-OP-C Subjective Start: 07/23/23 08:04 Freq: Status: Active Protocol: Document 08/07/23 08:03 SAK (Rec: 08/07/23 09:04 SAK [id number]) OP-PT Subjective Patient Comments Patient Comments Pain not bad, dull ache, but hasn't been disciplined about working out PT-OP-D Balance Start: 07/23/23 08:04 Freq: Status: Active Protocol: Document 07/23/23 08:13 SAK (Rec: 07/23/23 16:32 SAK [id number]) OP-PT Balance Assessment Sitting Balance Static Sitting Balance Ability Normal Dynamic Sitting Balance Ability Normal Standing Balance Static Standing Balance Ability Normal Dynamic Standing Balance Ability Normal Shipley Fall Scale Copyright Permission PT-OP-G Mobility & Gait Start: 04/15/24 08:04 Freq: Status: Active Protocol: Document 07/23/23 08:13 SAK (Rec: 07/23/23 16:32 SAK [id number]) OP Gait Assessment Gait Gait Assistance Required: Independent Assistive Devices Assistive Device None PT-OP-H Neuro Start: 07/23/23 08:04 Freq: Status: Active Protocol: Document 07/23/23 08:13 SAK (Rec: 07/23/23 16:32 SAK [id number]) Sensation Evaluation Gross Sensation Gross Sensation WNL PT-OP-J Posture/Palpation/Skin Start: 07/23/23 08:04 Freq: Status: Active Protocol: Document 07/23/23 08:13 SAK (Rec: 07/23/23 09:08 SAK [id number]) Posture Evaluation Position Standing Head/C-Spine Posture Forward Head T-Spine Posture Increased Kyphosis Pelvis Posture Anteriorly Tilted Weight Distribution Weight Shifted Left Hip Posture (R) Externally Rotated,(R) Abducted Knee Posture (L) Genu Recurvatum,(R) Genu Recurvatum Palpation Assessment Location SI Palpation Findings Soft Tissue Tightness, Tenderness Palpation Details right PT-OP-K Range of Motion Start: 07/23/23 08:04 Freq: Status: Active Protocol: Document 07/23/23 08:13 SAK (Rec: 07/23/23 16:32 SAK [id number]) Hip Goniometric Range of Motion Hip Right Flexion w/Knee Flexed 100 Straight Leg Raise 55 Extension 15 Abduction 25 Internal Rotation 35 External Rotation 40 Left Flexion w/Knee Flexed 100 Straight Leg Raise 65 Extension 15 Abduction 40 Internal Rotation 25 External Rotation 40 Hip ROM Limitations Hip ROM Limitations Soft Tissue Tightness Knee Goniometric Range of Motion Knee isaac Knee ROM WFL Yes PT-OP-L Special Tests Start: 07/23/23 08:04 Freq: Status: Active Protocol: Document 07/23/23 08:13 SAK (Rec: 07/23/23 16:32 SAK [id number]) Special Tests Lumbar Spine Special Tests Straight Leg Raise Test Results - Compression Test Results - Standing Flexion Test Results - Other Special Tests Special Tests SI gapping decreased pain on right PT-OP-M Strength Start: 07/23/23 08:04 Freq: Status: Active Protocol: Document 07/23/23 08:13 SAK (Rec: 07/23/23 09:08 [facility] [id number]) Trunk Strength Trunk Manual Muscle Testing Flexion 4 Good Extension 4 Good Hip Strength Hip Manual Muscle Testing Left Flexion (L2) 4- Good- Extension (S1) 4- Good- Abduction 4+ Good+ Adduction 4+ Good+ External Rotation 4+ Good+ Internal Rotation 4+ Good+ Right Flexion (L2) 4+ Good+ Extension (S1) 4- Good- Abduction 4 Good Adduction 4+ Good+ External Rotation 4 Good Internal Rotation 4 Good Knee Strength Knee Manual Muscle Testing isaac Flexion (S2) 5 Normal Extension (L3) 5 Normal PT-OP-Q Treatments Start: 07/23/23 08:04 Freq: Status: Active Protocol: Document 08/07/23 08:03 [facility] (Rec: 08/07/23 09:04 [facility] [id number]) Cardio Equipment Bicycle (Upright) Duration (Minutes) 6 Resistance 5 Seat Position 7 Therapeutic Exercises Supine Exercises SLR Reps/Minutes 2# bug Reps/Minutes 5x Manual Therapy Treatment Soft Tissue Mobilization self mob foam roller Body Location glut med, IT band, glut max, HS Comments foam roller: soft, med, hard, tennis ball pin and stretch Self-Care/Home Management Treatment Education Other Education foam roller use PT-OP-T Assessment and Plan Start: 07/23/23 08:04 Freq: Status: Active Protocol: Document 08/07/23 08:03 [facility] (Rec: 08/07/23 09:04 [facility] [id number]) Physical Therapy Assessment Goals Three Impairment muscular imbalances Short Term Goal (STG) Patient to be instructed in individualized progressive HEP for purposes of flexibility and strengthening STG Duration 08/22/23 Health Education Assistant Goal (LTG) Patient to demonstrate LE and lumbar flexibility WNL and strength to / to allow him to return to prior level of function Two Impairment postural dysfunction Impairment posterior positioning of thorax, exces ER right hip, dec right LE weight-bearing, posterior rotated innominate Short Term Goal (STG) Patient able to self-correct posture with min cues and do self assessment of habitual positioning and movement that may be contributory to pain STG Duration 08/22/23 Usp Goal (LTG) Patient able to achieve neutral postural alignment and demonstrate ability to self- correct pelvic alignment as needed LTG Duration 09/22/23 One Impairment Decreased functional activity tolerance Impairment Oswestrsy disability index score 18% Short Term Goal (STG) Decrease Oswestry score to no greater than 9% as measure of improved activity toerance STG Duration 08/22/23 Health Education Assistant Goal (LTG) Decrease Oswestry disability index score to no greater than 4% as measure of improved activity tolerance and return to prior level of function including sleeping without pain, jogging, and lifting weights without pain. LTG Duration 09/22/23 Assessment Summary Assessment Decreased pain and stiffness after warm up bicycle f/b instruction use of foam roller , review tennis ball both for soft tissue mobilization hip, demonstrated good understanding. Improved squat and lunge form. Decreased tightnes glut med after STM Physical Therapy Plan Frequency and Duration Frequency of Treatment 2x/Week Duration of treatment (weeks) 8 Plan of Care Start Date 07/23/23 Plan of Care End Date 09/22/23 Therapeutic Interventions Therapeutic Interventions Home Exercise Program,Joint Mobilizations,Manual Therapy, Patient/Caregiver Education, Self-Care/Home Management,Soft Tissue Mobilization,Taping, Therapeutic Activities, Therapeutic Exercises Modalities Cold Pack/Ice Massage,Electric Stimulation,Hot Packs, Infrared Therapy,Traction- Mechanical,Ultrasound Next Visit Focus/Plan Next Note Type Treatment Note Next Visit Plan Continue ther ex progression, use of mirror for correct form , manual techniques as indicated.
--- NOTE | 2023-08-24 08:16 | PT.OTN ---
Current Diagnoses Pain in right hip (08/24/23) Low back pain, unspecified (08/24/23) Abnormal posture (08/24/23) Weakness (08/24/23) Physical Therapy Treatment Note PT-OP-A Visit Information Start: 07/23/23 08:04 Freq: Status: Active Protocol: Document 08/24/23 07:36 SP (Rec: 08/24/23 08:19 SP [id number]) Out-Patient Physical Therapy Visit Information Visit Information Visit Type Treatment Note Visit Start Time 07:36 Visit Stop Time 08:16 Visit Number 4 Number of [facility] Visits 1 Evaluation Information Evaluation Date 07/23/23 PT-OP-B Current Condition Start: 07/23/23 08:04 Freq: Status: Active Protocol: Document 08/07/23 08:03 SAK (Rec: 08/07/23 09:04 SAK [id number]) Current Condition History of Current Condition Onset Date 2 years Current Complaints LBP, right hip pain History of Current Condition HIstory LBP and right hip pain . No precipitating even. Potentially exercise induced; gets worse when more active. Sometimes interrups sleep, stretching improves it a little. Right famur fracture 6th grade. 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 Reports feels hip very tight especially laterally. Massage at lateral posterior hips dec pain. Denies N/T. Pain ranges from 3-7. Also strained tendon left foot, has ordered custom orthotics for feet. Prior Treatments and Tests 1 episode PT. Treatment Goals Patient/Caregiver Goals Dec pain, improve sleep and function. Would like to run 10k or 1/2 marathon, lift weights without an increase in pain. PT-OP-C Subjective Start: 07/23/23 08:04 Freq: Status: Active Protocol: Document 08/24/23 07:36 SP (Rec: 08/24/23 08:19 SP [id number]) OP-PT Subjective Patient Comments Patient Comments Pt reports was OOT for 2 weeks . Feels better after PT and tries to keep up with stretching but overall not significant change. PT-OP-D Balance Start: 07/23/23 08:04 Freq: Status: Active Protocol: Document 07/23/23 08:13 SAK (Rec: 07/23/23 16:32 SAK [id number]) OP-PT Balance Assessment Sitting Balance Static Sitting Balance Ability Normal Dynamic Sitting Balance Ability Normal Standing Balance Static Standing Balance Ability Normal Dynamic Standing Balance Ability Normal Shipley Fall Scale Copyright Permission PT-OP-G Mobility & Gait Start: 07/23/23 08:04 Freq: Status: Active Protocol: Document 07/23/23 08:13 SAK (Rec: 07/23/23 16:32 [facility] [id number]) OP Gait Assessment Gait Gait Assistance Required: Independent Assistive Devices Assistive Device None PT-OP-H Neuro Start: 07/23/23 08:04 Freq: Status: Active Protocol: Document 07/23/23 08:13 SAK (Rec: 07/23/23 16:32 [facility] [id number]) Sensation Evaluation Gross Sensation Gross Sensation WNL PT-OP-J Posture/Palpation/Skin Start: 07/23/23 08:04 Freq: Status: Active Protocol: Document 07/23/23 08:13 SAK (Rec: 07/23/23 09:08 [facility] [id number]) Posture Evaluation Position Standing Head/C-Spine Posture Forward Head T-Spine Posture Increased Kyphosis Pelvis Posture Anteriorly Tilted Weight Distribution Weight Shifted Left Hip Posture (R) Externally Rotated,(R) Abducted Knee Posture (L) Genu Recurvatum,(R) Genu Recurvatum Palpation Assessment Location SI Palpation Findings Soft Tissue Tightness, Tenderness Palpation Details right PT-OP-K Range of Motion Start: 07/23/23 08:04 Freq: Status: Active Protocol: Document 07/23/23 08:13 SAK (Rec: 07/23/23 16:32 [facility] [id number]) Hip Goniometric Range of Motion Hip Right Flexion w/Knee Flexed 100 Straight Leg Raise 55 Extension 15 Abduction 25 Internal Rotation 35 External Rotation 40 Left Flexion w/Knee Flexed 100 Straight Leg Raise 65 Extension 15 Abduction 40 Internal Rotation 25 External Rotation 40 Hip ROM Limitations Hip ROM Limitations Soft Tissue Tightness Knee Goniometric Range of Motion Knee isaac Knee ROM WFL Yes PT-OP-L Special Tests Start: 07/23/23 08:04 Freq: Status: Active Protocol: Document 07/23/23 08:13 SAK (Rec: 07/23/23 16:32 [facility] [id number]) Special Tests Lumbar Spine Special Tests Straight Leg Raise Test Results - Compression Test Results - Standing Flexion Test Results - Other Special Tests Special Tests SI gapping decreased pain on right PT-OP-M Strength Start: 07/23/23 08:04 Freq: Status: Active Protocol: Document 07/23/23 08:13 SAK (Rec: 07/23/23 09:08 SAK [id number]) Trunk Strength Trunk Manual Muscle Testing Flexion 4 Good Extension 4 Good Hip Strength Hip Manual Muscle Testing Left Flexion (L2) 4- Good- Extension (S1) 4- Good- Abduction 4+ Good+ Adduction 4+ Good+ External Rotation 4+ Good+ Internal Rotation 4+ Good+ Right Flexion (L2) 4+ Good+ Extension (S1) 4- Good- Abduction 4 Good Adduction 4+ Good+ External Rotation 4 Good Internal Rotation 4 Good Knee Strength Knee Manual Muscle Testing isaac Flexion (S2) 5 Normal Extension (L3) 5 Normal PT-OP-Q Treatments Start: 07/23/23 08:04 Freq: Status: Active Protocol: Document 08/24/23 07:36 SP (Rec: 08/24/23 08:19 SP [id number]) Therapeutic Exercises Supine Exercises jaime stretch Supine Exercise Name trialed in PT post manual for increase hip flexor mobility Side right Reps/Minutes 60 sec Comments cued neutral LS - no pain bug Reps/Minutes 5x Comments cued TA/ PPT, range bridge Supine Exercise Name single leg lift bridge Equipment Used hip adduction small ball between knees Reps/Minutes 2x5 reps Comments cued level pelvis, improved R hip tiring effort not pain piriformis stretch Side right Reps/Minutes 60 sec figure 4 Side right Reps/Minutes 60 sec Standing Exercises 1/2 kneel TFL, psoas stretch Standing Exercise Name Added alternative when upright vs Jaime stretch Side right Equipment Used foam under knee, contact table if needed Reps/Minutes 30 x2 Comments R hip IR with wt shift fwd then added OH reach Manual Therapy Treatment Soft Tissue Mobilization R hip Body Location R TFL, glut med, pirif Joint Mobilizations right innominate Grade II Body Position Hooklying Comments R post tilt- isometric add, abd, hip flexion then self use dowel flex/ext with LEs 90/90 - reports dec pain PT-OP-T Assessment and Plan Start: 07/23/23 08:04 Freq: Status: Active Protocol: Document 08/24/23 07:36 SP (Rec: 08/24/23 08:19 SP [id number]) Physical Therapy Assessment Goals Three Impairment muscular imbalances Short Term Goal (STG) Patient to be instructed in individualized progressive HEP for purposes of flexibility and strengthening STG Duration 08/22/23 Shelter Goal (LTG) Patient to demonstrate LE and lumbar flexibility WNL and strength to 08/11 to allow him to return to prior level of function Two Impairment postural dysfunction Impairment posterior positioning of thorax, exces ER right hip, dec right LE weight-bearing, posterior rotated innominate Short Term Goal (STG) Patient able to self-correct posture with min cues and do self assessment of habitual positioning and movement that may be contributory to pain STG Duration 08/22/23 Shelter Goal (LTG) Patient able to achieve neutral postural alignment and demonstrate ability to self- correct pelvic alignment as needed LTG Duration 09/22/23 One Impairment Decreased functional activity tolerance Impairment Oswestrsy disability index score 18% Short Term Goal (STG) Decrease Oswestry score to no greater than 9% as measure of improved activity toerance STG Duration 08/22/23 Shelter Goal (LTG) Decrease Oswestry disability index score to no greater than 4% as measure of improved activity tolerance and return to prior level of function including sleeping without pain, jogging, and lifting weights without pain. LTG Duration 09/22/23 Assessment Summary Assessment Pt responded well to manual and stretching review. cued PPT neutral LS and TA for not recruit LB. No adverse affects of LB discomfort to but and only tiring challenge SL bridge with isometric adduction. Would benefit from continued review form with HEP and progress into functional activities does during day. Physical Therapy Plan Frequency and Duration Frequency of Treatment 2x/Week Duration of treatment (weeks) 8 Plan of Care Start Date 07/23/23 Plan of Care End Date 09/22/23 Therapeutic Interventions Therapeutic Interventions Home Exercise Program,Joint Mobilizations,Manual Therapy, Patient/Caregiver Education, Self-Care/Home Management,Soft Tissue Mobilization,Taping, Therapeutic Activities, Therapeutic Exercises Modalities Cold Pack/Ice Massage,Electric Stimulation,Hot Packs, Infrared Therapy,Traction- Mechanical,Ultrasound Next Visit Focus/Plan Next Note Type Treatment Note Next Visit Plan Recheck bridge, bug HEP and added 1/2 kneel hip flexor stretch last tx. Continue ther ex progression, use of mirror for correct form, manual techniques as indicated .
--- NOTE | 2023-08-28 08:02 | PT.OTN ---
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 No precipitating even. Potentially exercise induced; gets worse when more active. Sometimes interrups sleep, stretching improves it a little. Right famur fracture 6th grade. 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 Reports feels hip very tight especially laterally. Massage at lateral posterior hips dec pain. Denies N/T. Pain ranges from 3-7. Also strained tendon left foot, has ordered custom orthotics for feet. Prior Treatments and Tests 1 episode PT. Treatment Goals Patient/Caregiver Goals Dec pain, improve sleep and function. Would like to run 10k or 1/2 marathon, lift weights without an increase in pain. PT-OP-C Subjective Start: 07/23/23 08:04 Freq: Status: Active Protocol: Document 08/28/23 07:31 SP (Rec: 08/28/23 08:18 SP [id number]) OP-PT Subjective Patient Comments Patient Comments Pt reported needed leave early due to meeting at work. Pt reports back feeling better after PT tx and trying to incorporate into his day. Did some stretching before a run over the weekend with jog about 2 miles and walk/run for most 4 miles and did pretty well. Arrives with tightness in back not did stretching this am. PT-OP-D Balance Start: 07/23/23 08:04 Freq: Status: Active Protocol: Document 07/23/23 08:13 SAK (Rec: 07/23/23 16:32 [facility] [id number]) OP-PT Balance Assessment Sitting Balance Static Sitting Balance Ability Normal Dynamic Sitting Balance Ability Normal Standing Balance Static Standing Balance Ability Normal Dynamic Standing Balance Ability Normal Shipley Fall Scale Copyright Permission PT-OP-G Mobility & Gait Start: 07/23/23 08:04 Freq: Status: Active Protocol: Document 07/23/23 08:13 SAK (Rec: 07/23/23 16:32 [facility] [id number]) OP Gait Assessment Gait Gait Assistance Required: Independent Assistive Devices Assistive Device None PT-OP-H Neuro Start: 07/23/23 08:04 Freq: Status: Active Protocol: Document 07/23/23 08:13 SAK (Rec: 07/23/23 16:32 SAK [id number]) Sensation Evaluation Gross Sensation Gross Sensation WNL PT-OP-J Posture/Palpation/Skin Start: 07/23/23 08:04 Freq: Status: Active Protocol: Document 07/23/23 08:13 SAK (Rec: 07/23/23 09:08 SAK [id number]) Posture Evaluation Position Standing Head/C-Spine Posture Forward Head T-Spine Posture Increased Kyphosis Pelvis Posture Anteriorly Tilted Weight Distribution Weight Shifted Left Hip Posture (R) Externally Rotated,(R) Abducted Knee Posture (L) Genu Recurvatum,(R) Genu Recurvatum Palpation Assessment Location SI Palpation Findings Soft Tissue Tightness, Tenderness Palpation Details right PT-OP-K Range of Motion Start: 07/23/23 08:04 Freq: Status: Active Protocol: Document 07/23/23 08:13 SAK (Rec: 07/23/23 16:32 [facility] [id number]) Hip Goniometric Range of Motion Hip Right Flexion w/Knee Flexed 100 Straight Leg Raise 55 Extension 15 Abduction 25 Internal Rotation 35 External Rotation 40 Left Flexion w/Knee Flexed 100 Straight Leg Raise 65 Extension 15 Abduction 40 Internal Rotation 25 External Rotation 40 Hip ROM Limitations Hip ROM Limitations Soft Tissue Tightness Knee Goniometric Range of Motion Knee isaac Knee ROM WFL Yes PT-OP-L Special Tests Start: 07/23/23 08:04 Freq: Status: Active Protocol: Document 07/23/23 08:13 SAK (Rec: 07/23/23 16:32 [facility] [id number]) Special Tests Lumbar Spine Special Tests Straight Leg Raise Test Results - Compression Test Results - Standing Flexion Test Results - Other Special Tests Special Tests SI gapping decreased pain on right PT-OP-M Strength Start: 07/23/23 08:04 Freq: Status: Active Protocol: Document 07/23/23 08:13 SAK (Rec: 07/23/23 09:08 SAK [id number]) Trunk Strength Trunk Manual Muscle Testing Flexion 4 Good Extension 4 Good Hip Strength Hip Manual Muscle Testing Left Flexion (L2) 4- Good- Extension (S1) 4- Good- Abduction 4+ Good+ Adduction 4+ Good+ External Rotation 4+ Good+ Internal Rotation 4+ Good+ Right Flexion (L2) 4+ Good+ Extension (S1) 4- Good- Abduction 4 Good Adduction 4+ Good+ External Rotation 4 Good Internal Rotation 4 Good Knee Strength Knee Manual Muscle Testing isaac Flexion (S2) 5 Normal Extension (L3) 5 Normal PT-OP-Q Treatments Start: 07/23/23 08:04 Freq: Status: Active Protocol: Document 08/28/23 07:31 SP (Rec: 08/28/23 08:18 SP [id number]) Therapeutic Exercises Supine Exercises self pelvic realignment Supine Exercise Name 90/90: hip flexion and opp ext isometric Equipment Used dowel use, yoga mat Reps/Minutes 5 SH x3 each side bridge Supine Exercise Name single leg lift bridge Equipment Used hip adduction small ball between knees Reps/Minutes 2x5 reps Comments cued level pelvis, improved R hip tiring effort not pain piriformis stretch Side bilateral Equipment Used use strap Reps/Minutes 60 sec HS stretch Side bilateral Equipment Used strap Reps/Minutes 2x30 Sitting Exercises quad stretch Sitting Exercise Name 1/2 long sit- self stretching finds effective Side bilateral Reps/Minutes 60 sec Standing Exercises 1/2 kneel TFL, psoas stretch Side bilateral Equipment Used yoga mat Reps/Minutes 30 x2 Comments R hip IR with wt shift fwd /c OH reach lift Standing Exercise Name 5x dbl, 5x single leg Equipment Used dowel, front mirror Reps/Minutes 5x Comments cues for form: chest lift, level pelvis lunge Equipment Used mirror, use foam stone oval for Reps/Minutes 10x Comments cues for form, even stride stance- not over ext in back, hip maryellen flex Self-Care/Home Management Treatment Education Patient Education Body Mechanics,Home Exercise Program,Posture Other Education Time spent ed on sitting alignment back support vs front seat. Standing desk even WB and pelvic alignment neutral. PT-OP-T Assessment and Plan Start: 07/23/23 08:04 Freq: Status: Active Protocol: Document 08/28/23 07:31 SP (Rec: 08/28/23 08:18 SP [id number]) Physical Therapy Assessment Goals Three Impairment muscular imbalances Short Term Goal (STG) Patient to be instructed in individualized progressive HEP for purposes of flexibility and strengthening STG Duration 08/22/23 Custodial Goal (LTG) Patient to demonstrate LE and lumbar flexibility WNL and strength to 08/11 to allow him to return to prior level of function Two Impairment postural dysfunction Impairment posterior positioning of thorax, exces ER right hip, dec right LE weight-bearing, posterior rotated innominate Short Term Goal (STG) Patient able to self-correct posture with min cues and do self assessment of habitual positioning and movement that may be contributory to pain STG Duration 08/22/23 Custodial Goal (LTG) Patient able to achieve neutral postural alignment and demonstrate ability to self- correct pelvic alignment as needed LTG Duration 09/22/23 One Impairment Decreased functional activity tolerance Impairment Oswestrsy disability index score 18% Short Term Goal (STG) Decrease Oswestry score to no greater than 9% as measure of improved activity toerance STG Duration 08/22/23 Custodial Goal (LTG) Decrease Oswestry disability index score to no greater than 4% as measure of improved activity tolerance and return to prior level of function including sleeping without pain, jogging, and lifting weights without pain. LTG Duration 09/22/23 Assessment Summary Assessment Pt responded well to stretching at arrival with recommendations of incorporating into his day. Cues for level pelvis and even stance hip hinge during deadlift and lunges today with reports less tension on hip and LS to support run/jog SLS time. Would benefit from continued strengthening in core and hip flex/ext/rotation to support TA and LB during daily activities for return to PLOF running. Physical Therapy Plan Frequency and Duration Frequency of Treatment 2x/Week Duration of treatment (weeks) 8 Plan of Care Start Date 07/23/23 Plan of Care End Date 09/22/23 Therapeutic Interventions Therapeutic Interventions Home Exercise Program,Joint Mobilizations,Manual Therapy, Patient/Caregiver Education, Self-Care/Home Management,Soft Tissue Mobilization,Taping, Therapeutic Activities, Therapeutic Exercises Modalities Cold Pack/Ice Massage,Electric Stimulation,Hot Packs, Infrared Therapy,Traction- Mechanical,Ultrasound Next Visit Focus/Plan Next Note Type Treatment Note Next Visit Plan Recheck stretching HEP. Continue ther ex progression core and hip flex/ext/rotation (MMT weakness) for return PLOF activities. Next add paloff press, hip abd, band walk, squat row, SL sliders. Use of mirror for correct form , manual techniques as indicated.
--- NOTE | 2023-08-31 09:02 | PT.OTN ---
Current Diagnoses Pain in right hip (08/31/23) Low back pain, unspecified (08/31/23) Abnormal posture (08/31/23) Weakness (08/31/23) Physical Therapy Treatment Note PT-OP-A Visit Information Start: 07/23/23 08:04 Freq: Status: Active Protocol: Document 08/31/23 08:21 SP (Rec: 08/31/23 09:05 SP [id number]) Out-Patient Physical Therapy Visit Information Visit Information Visit Type Treatment Note Visit Start Time 08:21 Visit Stop Time 09:02 Visit Number 6 Number of DIRECTOR COUNCIL ON AGING Visits 3 Evaluation Information Evaluation Date 07/23/23 PT-OP-B Current Condition Start: 07/23/23 08:04 Freq: Status: Active Protocol: Document 08/07/23 08:03 SAK (Rec: 08/07/23 09:04 SAK [id number]) Current Condition History of Current Condition Onset Date 2 years Current Complaints LBP, right hip pain History of Current Condition HIstory LBP and right hip pain . No precipitating even. Potentially exercise induced; gets worse when more active. Sometimes interrups sleep, stretching improves it a little. Right famur fracture 6th grade. 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 Reports feels hip very tight especially laterally. Massage at lateral posterior hips dec pain. Denies N/T. Pain ranges from 3-7. Also strained tendon left foot, has ordered custom orthotics for feet. Prior Treatments and Tests 1 episode PT. Treatment Goals Patient/Caregiver Goals Dec pain, improve sleep and function. Would like to run 10k or 1/2 marathon, lift weights without an increase in pain. PT-OP-C Subjective Start: 07/23/23 08:04 Freq: Status: Active Protocol: Document 08/31/23 08:21 SP (Rec: 08/31/23 09:05 SP [id number]) OP-PT Subjective Patient Comments Patient Comments Pt report LB little sore after jogging and ultimate frizbee run/jumping, pushups/pullups. PT-OP-D Balance Start: 07/23/23 08:04 Freq: Status: Active Protocol: Document 07/23/23 08:13 SAK (Rec: 07/23/23 16:32 SAK [id number]) OP-PT Balance Assessment Sitting Balance Static Sitting Balance Ability Normal Dynamic Sitting Balance Ability Normal Standing Balance Static Standing Balance Ability Normal Dynamic Standing Balance Ability Normal Shipley Fall Scale Copyright Permission PT-OP-G Mobility & Gait Start: 07/23/23 08:04 Freq: Status: Active Protocol: Document 07/23/23 08:13 SAK (Rec: 07/23/23 16:32 [facility] [id number]) OP Gait Assessment Gait Gait Assistance Required: Independent Assistive Devices Assistive Device None PT-OP-H Neuro Start: 07/23/23 08:04 Freq: Status: Active Protocol: Document 07/23/23 08:13 SAK (Rec: 07/23/23 16:32 [facility] [id number]) Sensation Evaluation Gross Sensation Gross Sensation WNL PT-OP-J Posture/Palpation/Skin Start: 07/23/23 08:04 Freq: Status: Active Protocol: Document 07/23/23 08:13 SAK (Rec: 07/23/23 09:08 SAK [id number]) Posture Evaluation Position Standing Head/C-Spine Posture Forward Head T-Spine Posture Increased Kyphosis Pelvis Posture Anteriorly Tilted Weight Distribution Weight Shifted Left Hip Posture (R) Externally Rotated,(R) Abducted Knee Posture (L) Genu Recurvatum,(R) Genu Recurvatum Palpation Assessment Location SI Palpation Findings Soft Tissue Tightness, Tenderness Palpation Details right PT-OP-K Range of Motion Start: 07/23/23 08:04 Freq: Status: Active Protocol: Document 07/23/23 08:13 SAK (Rec: 07/23/23 16:32 [facility] [id number]) Hip Goniometric Range of Motion Hip Right Flexion w/Knee Flexed 100 Straight Leg Raise 55 Extension 15 Abduction 25 Internal Rotation 35 External Rotation 40 Left Flexion w/Knee Flexed 100 Straight Leg Raise 65 Extension 15 Abduction 40 Internal Rotation 25 External Rotation 40 Hip ROM Limitations Hip ROM Limitations Soft Tissue Tightness Knee Goniometric Range of Motion Knee isaac Knee ROM WFL Yes PT-OP-L Special Tests Start: 07/23/23 08:04 Freq: Status: Active Protocol: Document 07/23/23 08:13 SAK (Rec: 07/23/23 16:32 [facility] [id number]) Special Tests Lumbar Spine Special Tests Straight Leg Raise Test Results - Compression Test Results - Standing Flexion Test Results - Other Special Tests Special Tests SI gapping decreased pain on right PT-OP-M Strength Start: 07/23/23 08:04 Freq: Status: Active Protocol: Document 07/23/23 08:13 SAK (Rec: 07/23/23 09:08 SAK [id number]) Trunk Strength Trunk Manual Muscle Testing Flexion 4 Good Extension 4 Good Hip Strength Hip Manual Muscle Testing Left Flexion (L2) 4- Good- Extension (S1) 4- Good- Abduction 4+ Good+ Adduction 4+ Good+ External Rotation 4+ Good+ Internal Rotation 4+ Good+ Right Flexion (L2) 4+ Good+ Extension (S1) 4- Good- Abduction 4 Good Adduction 4+ Good+ External Rotation 4 Good Internal Rotation 4 Good Knee Strength Knee Manual Muscle Testing isaac Flexion (S2) 5 Normal Extension (L3) 5 Normal PT-OP-Q Treatments Start: 07/23/23 08:04 Freq: Status: Active Protocol: Document 08/31/23 08:21 SP (Rec: 08/31/23 09:05 SP [id number]) Therapeutic Exercises Supine Exercises angelica stretch Supine Exercise Name reviewed Side bilateral Equipment Used strap to ankle Reps/Minutes 60 sec Comments cued neutral LS - no pain piriformis stretch Side bilateral Equipment Used use strap Reps/Minutes 60 sec HS stretch Side bilateral Equipment Used strap Reps/Minutes 60 SKTC Equipment Used strap use Reps/Minutes x60 Standing Exercises paloff press Standing Exercise Name trialed- revisit next tx. Side bilateral Resistance cable 3 plates (less wt TB or plate easy) Reps/Minutes x10 each side- challenge Comments athletic stance- some hip add/ flex recruit on R band walk Standing Exercise Name f/b/lateral- added to HEP Resistance TB #3 green Reps/Minutes 15 ft x2 laps each direction Comments cued tall posture midline, little bigger than normal step - tiring glutmed runner's stretch Standing Exercise Name trialed in PT Side bilateral Equipment Used elevated table Reps/Minutes 2x 30 SH Comments tight end feel but not pain- increased hip ER with reps Other Exercises pigeon up Other Exercise Name trialed- not flexibile to do Manual Therapy Treatment Soft Tissue Mobilization back Body Location B LS QL, paraspinal Comments prone over pillows and child's pose R hip Body Location R glut med, pirif Body Position Prone Comments MWM hip IR/ER Self-Care/Home Management Treatment Education Patient Education Body Mechanics,Home Exercise Program,Posture Other Education He has been using pillows between BLEs, hasn't trialed rolled towel under LS on side. Hasn't installed standing desk yet. PT-OP-T Assessment and Plan Start: 07/23/23 08:04 Freq: Status: Active Protocol: Document 08/31/23 08:21 SP (Rec: 08/31/23 09:05 SP [id number]) Physical Therapy Assessment Goals Three Impairment muscular imbalances Short Term Goal (STG) Patient to be instructed in individualized progressive HEP for purposes of flexibility and strengthening STG Duration 08/22/23 Half-Way Goal (LTG) Patient to demonstrate LE and lumbar flexibility WNL and strength to 08/11 to allow him to return to prior level of function Two Impairment postural dysfunction Impairment posterior positioning of thorax, exces ER right hip, dec right LE weight-bearing, posterior rotated innominate Short Term Goal (STG) Patient able to self-correct posture with min cues and do self assessment of habitual positioning and movement that may be contributory to pain STG Duration 08/22/23 Sponge Buffer Goal (LTG) Patient able to achieve neutral postural alignment and demonstrate ability to self- correct pelvic alignment as needed LTG Duration 09/22/23 One Impairment Decreased functional activity tolerance Impairment Oswestrsy disability index score 18% Short Term Goal (STG) Decrease Oswestry score to no greater than 9% as measure of improved activity toerance STG Duration 08/22/23 Half-Way Goal (LTG) Decrease Oswestry disability index score to no greater than 4% as measure of improved activity tolerance and return to prior level of function including sleeping without pain, jogging, and lifting weights without pain. LTG Duration 09/22/23 Assessment Summary Assessment Pt responded well to manual and stretching, with addition of strap for added quad stretch. Intiated hip abd strengthening with good glut med tiring not pain, cues for trunk and pelvic posture/ positioning for target hips. Pt reported good tiring hip feeling end tx. Trialed paloff press, some R hip add/flexor recruitment, will revisit next tx. Physical Therapy Plan Frequency and Duration Frequency of Treatment 2x/Week Duration of treatment (weeks) 8 Plan of Care Start Date 07/23/23 Plan of Care End Date 09/22/23 Therapeutic Interventions Therapeutic Interventions Home Exercise Program,Joint Mobilizations,Manual Therapy, Patient/Caregiver Education, Self-Care/Home Management,Soft Tissue Mobilization,Taping, Therapeutic Activities, Therapeutic Exercises Modalities Cold Pack/Ice Massage,Electric Stimulation,Hot Packs, Infrared Therapy,Traction- Mechanical,Ultrasound Next Visit Focus/Plan Next Note Type Treatment Note Next Visit Plan *Pt need add more appts. Recheck stretching HEP. Continue ther ex progression core and hip flex/ext/rotation (MMT weakness) for return PLOF activities. Next add paloff press, hip abd, band walk, squat row, SL sliders. Use of mirror for correct form , manual techniques as indicated.
--- NOTE | 2023-09-26 13:59 | PT.OPPOC ---
Physical, Occupational & Speech Therapy At [facility] Current Diagnoses Pain in right hip (08/31/23) Low back pain, unspecified (08/31/23) Abnormal posture (08/31/23) Weakness (08/31/23) Visit Care Team Role Provider Type Tayla Adkins MD Attending Provider Non-Staff Family Provider Primary Care Provider Referring Provider Specialty: Medical Address: [address], [address] Email: Plan Of Care PT-OP-T Assessment and Plan Start: 07/23/23 08:04 Freq: Status: Active Protocol: Document 10/17/23 13:51 SAK (Rec: 10/17/23 13:58 SAK [id number]) Physical Therapy Assessment Evaluation Complexity Number of Personal Factors/Comorbidities 1-2 Number of Body Systems Impaired 3 Clinical Presentation at Evaluation Evolving Impairments Impairments Activity Tolerance,Functional Activities,Pain,Posture,Soft Tissue Mobility Goals Three Impairment muscular imbalances Short Term Goal (STG) Patient to be instructed in individualized progressive HEP for purposes of flexibility and strengthening 09/26/23: goal met, ongoing progression and modification STG Duration goal met Circular Knife Machine Cutter Goal (LTG) Patient to demonstrate LE and lumbar flexibility WNL and strength to 5/5 to allow him to return to prior level of function LTG Duration 12/23/23 Two Impairment postural dysfunction Impairment posterior positioning of thorax, exces ER right hip, dec right LE weight-bearing, posterior rotated innominate Short Term Goal (STG) Patient able to self-correct posture with min cues and do self assessment of habitual positioning and movement that may be contributory to pain 09/26/23: patient has obtained standing desk, improving in mindfulness of postural correction STG Duration goal met Circular Knife Machine Cutter Goal (LTG) Patient able to achieve neutral postural alignment and demonstrate ability to self- correct pelvic alignment as needed LTG Duration 12/23/23 One Impairment Decreased functional activity tolerance Impairment Oswestrsy disability index score 18% Short Term Goal (STG) Decrease Oswestry score to no greater than 9% as measure of improved activity toerance 09/26/23: patient had to cancel today's appointment so unable to fill out. Goal progress per patient report. STG Duration 5/15/24 Circular Knife Machine Cutter Goal (LTG) Decrease Oswestry disability index score to no greater than 4% as measure of improved activity tolerance and return to prior level of function including sleeping without pain, jogging, and lifting weights without pain. LTG Duration 09/22/23 Assessment Summary Assessment Patient has been making good goal progress toward goals, has made modifications in his work station, is compliant to HEP. Has had difficulty getting into PT due to his schedule and PT schedule. Now he is leaving out of town for a few weeks. He will contact his physician to request more visits if feels the need for more when he returns. Physical Therapy Plan Frequency and Duration Frequency of Treatment Every Other Week Duration of treatment (weeks) 12 Plan of Care Start Date 09/22/23 Plan of Care End Date 12/23/23 Therapeutic Interventions Therapeutic Interventions Home Exercise Program,Joint Mobilizations,Manual Therapy, Patient/Caregiver Education, Self-Care/Home Management,Soft Tissue Mobilization,Taping, Therapeutic Activities, Therapeutic Exercises Modalities Cold Pack/Ice Massage,Electric Stimulation,Hot Packs, Infrared Therapy,Traction- Mechanical,Ultrasound Next Visit Focus/Plan Next Note Type Treatment Note Next Visit Plan Continue progression of strengthening, postural correction, activity modification as needed. Plan of Care Dates Plan of Care Start Date 09/22/23 Plan of Care End Date 12/23/23 Electronically Signed by: Mckenzie Gilmore, PT 10/17/23 [id number] If you are in agreement with this Plan of Care, please return a signed and dated copy. I have reviewed this Plan of Care and certify that the skilled therapy services above are required to meet the patient?s needs. Physician Signature Date Printed Name and Credentials Clinical Instructor Signature Printed Name and Credentials
--- NOTE | 2023-09-26 16:00 | PT.OTRE ---
Current Diagnoses Pain in right hip (08/31/23) Low back pain, unspecified (08/31/23) Abnormal posture (08/31/23) Weakness (08/31/23) Visit Care Team Role Provider Type Tayla Adkins MD Attending Provider Non-Staff Family Provider Primary Care Provider Referring Provider Specialty: Medical Address: [address], [address] Email: Physical Therapy Re-Evaluation PT-OP-A Visit Information Start: 07/23/23 08:04 Freq: Status: Active Protocol: Document 10/17/23 13:51 SAK (Rec: 10/17/23 13:58 SAK [id number]) Out-Patient Physical Therapy Visit Information Visit Information Visit Type Re-Evaluation Evaluation Information Evaluation Date 07/23/23 PT-OP-B Current Condition Start: 07/23/23 08:04 Freq: Status: Active Protocol: Document 08/07/23 08:03 SAK (Rec: 08/07/23 09:04 SAK [id number]) Current Condition History of Current Condition Onset Date 2 years Current Complaints LBP, right hip pain History of Current Condition HIstory LBP and right hip pain . No precipitating even. Potentially exercise induced; gets worse when more active. Sometimes interrups sleep, stretching improves it a little. Right famur fracture 6th grade. 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 Reports feels hip very tight especially laterally. Massage at lateral posterior hips dec pain. Denies N/T. Pain ranges from 3-7. Also strained tendon left foot, has ordered custom orthotics for feet. Prior Treatments and Tests 1 episode PT. Treatment Goals Patient/Caregiver Goals Dec pain, improve sleep and function. Would like to run 10k or 1/2 marathon, lift weights without an increase in pain. PT-OP-C Subjective Start: 07/23/23 08:04 Freq: Status: Active Protocol: Document 08/31/23 08:21 SP (Rec: 08/31/23 09:05 SP [id number]) OP-PT Subjective Patient Comments Patient Comments Pt report LB little sore after jogging and ultimate frizbee run/jumping, pushups/pullups. PT-OP-D Balance Start: 07/23/23 08:04 Freq: Status: Active Protocol: Document 07/23/23 08:13 SAK (Rec: 07/23/23 16:32 SAK [id number]) OP-PT Balance Assessment Sitting Balance Static Sitting Balance Ability Normal Dynamic Sitting Balance Ability Normal Standing Balance Static Standing Balance Ability Normal Dynamic Standing Balance Ability Normal Shipley Fall Scale Copyright Permission Violetta DESOUZA, Violetta RM, Andreas SJ. Development of a scale to identify the fall- prone patient. Can J Aging 1989;8;366-7. Billy Shipley (2009). Preventing patient falls. (2nd ed). [place]: [place]. PT-OP-G Mobility & Gait Start: 07/23/23 08:04 Freq: Status: Active Protocol: Document 07/23/23 08:13 SAK (Rec: 07/23/23 16:32 SAK [id number]) OP Gait Assessment Gait Gait Assistance Required: Independent Assistive Devices Assistive Device None PT-OP-H Neuro Start: 07/23/23 08:04 Freq: Status: Active Protocol: Document 07/23/23 08:13 SAK (Rec: 07/23/23 16:32 [facility] [id number]) Sensation Evaluation Gross Sensation Gross Sensation WNL PT-OP-J Posture/Palpation/Skin Start: 07/23/23 08:04 Freq: Status: Active Protocol: Document 07/23/23 08:13 SAK (Rec: 07/23/23 09:08 SAK [id number]) Posture Evaluation Position Standing Head/C-Spine Posture Forward Head T-Spine Posture Increased Kyphosis Pelvis Posture Anteriorly Tilted Weight Distribution Weight Shifted Left Hip Posture (R) Externally Rotated,(R) Abducted Knee Posture (L) Genu Recurvatum,(R) Genu Recurvatum Palpation Assessment Location SI Palpation Findings Soft Tissue Tightness, Tenderness Palpation Details right PT-OP-K Range of Motion Start: 07/23/23 08:04 Freq: Status: Active Protocol: Document 07/23/23 08:13 SAK (Rec: 07/23/23 16:32 SAK [id number]) Hip Goniometric Range of Motion Hip Measured in Degrees Right Flexion w/Knee Flexed 100 Straight Leg Raise 55 Extension 15 Abduction 25 Internal Rotation 35 External Rotation 40 Left Flexion w/Knee Flexed 100 Straight Leg Raise 65 Extension 15 Abduction 40 Internal Rotation 25 External Rotation 40 Hip ROM Limitations Hip ROM Limitations Soft Tissue Tightness Knee Goniometric Range of Motion Knee Measured in Degrees isaac Knee ROM WFL Yes PT-OP-L Special Tests Start: 07/23/23 08:04 Freq: Status: Active Protocol: Document 07/23/23 08:13 SAK (Rec: 07/23/23 16:32 SAK [id number]) Special Tests Lumbar Spine Special Tests Straight Leg Raise Test Results - Compression Test Results - Standing Flexion Test Results - Other Special Tests Special Tests SI gapping decreased pain on right PT-OP-M Strength Start: 07/23/23 08:04 Freq: Status: Active Protocol: Document 07/23/23 08:13 SAK (Rec: 07/23/23 09:08 SAK [id number]) Trunk Strength Trunk Manual Muscle Testing Flexion 4 Good Extension 4 Good Hip Strength Hip Manual Muscle Testing Left Flexion (L2) 4- Good- Extension (S1) 4- Good- Abduction 4+ Good+ Adduction 4+ Good+ External Rotation 4+ Good+ Internal Rotation 4+ Good+ Right Flexion (L2) 4+ Good+ Extension (S1) 4- Good- Abduction 4 Good Adduction 4+ Good+ External Rotation 4 Good Internal Rotation 4 Good Knee Strength Knee Manual Muscle Testing isaac Flexion (S2) 5 Normal Extension (L3) 5 Normal PT-OP-Q Treatments Start: 07/23/23 08:04 Freq: Status: Active Protocol: Document 08/31/23 08:21 SP (Rec: 08/31/23 09:05 SP [id number]) Therapeutic Exercises Supine Exercises angelica stretch Supine Exercise Name reviewed Side bilateral Equipment Used strap to ankle Reps/Minutes 60 sec Comments cued neutral LS - no pain piriformis stretch Side bilateral Equipment Used use strap Reps/Minutes 60 sec HS stretch Side bilateral Equipment Used strap Reps/Minutes 60 SKTC Equipment Used strap use Reps/Minutes x60 Standing Exercises paloff press Standing Exercise Name trialed- revisit next tx. Side bilateral Resistance cable 3 plates (less wt TB or plate easy) Reps/Minutes x10 each side- challenge Comments athletic stance- some hip add/ flex recruit on R band walk Standing Exercise Name f/b/lateral- added to HEP Resistance TB #3 green Reps/Minutes 15 ft x2 laps each direction Comments cued tall posture midline, little bigger than normal step - tiring glutmed runner's stretch Standing Exercise Name trialed in PT Side bilateral Equipment Used elevated table Reps/Minutes 2x 30 SH Comments tight end feel but not pain- increased hip ER with reps Other Exercises pigeon up Other Exercise Name trialed- not flexibile to do Manual Therapy Treatment Soft Tissue Mobilization back Body Location B LS QL, paraspinal Comments prone over pillows and child's pose R hip Body Location R glut med, pirif Body Position Prone Comments MWM hip IR/ER Self-Care/Home Management Treatment Education Patient Education Body Mechanics,Home Exercise Program,Posture Other Education He has been using pillows between BLEs, hasn't trialed rolled towel under LS on side. Hasn't installed standing desk yet. PT-OP-T Assessment and Plan Start: 07/23/23 08:04 Freq: Status: Active Protocol: Document 10/17/23 13:51 [facility] (Rec: 10/17/23 13:58 [facility] [id number]) Physical Therapy Assessment Evaluation Complexity Number of Personal Factors/Comorbidities 1-2 Number of Body Systems Impaired 3 Clinical Presentation at Evaluation Evolving Impairments Impairments Activity Tolerance,Functional Activities,Pain,Posture,Soft Tissue Mobility Goals Three Impairment muscular imbalances Short Term Goal (STG) Patient to be instructed in individualized progressive HEP for purposes of flexibility and strengthening 09/26/23: goal met, ongoing progression and modification STG Duration goal met Consulting Technical Manager Goal (LTG) Patient to demonstrate LE and lumbar flexibility WNL and strength to 5/5 to allow him to return to prior level of function LTG Duration 12/23/23 Two Impairment postural dysfunction Impairment posterior positioning of thorax, exces ER right hip, dec right LE weight-bearing, posterior rotated innominate Short Term Goal (STG) Patient able to self-correct posture with min cues and do self assessment of habitual positioning and movement that may be contributory to pain 09/26/23: patient has obtained standing desk, improving in mindfulness of postural correction STG Duration goal met Consulting Technical Manager Goal (LTG) Patient able to achieve neutral postural alignment and demonstrate ability to self- correct pelvic alignment as needed LTG Duration 12/23/23 One Impairment Decreased functional activity tolerance Impairment Oswestrsy disability index score 18% Short Term Goal (STG) Decrease Oswestry score to no greater than 9% as measure of improved activity toerance 09/26/23: patient had to cancel today's appointment so unable to fill out. Goal progress per patient report. STG Duration 08/22/23 Retirement Goal (LTG) Decrease Oswestry disability index score to no greater than 4% as measure of improved activity tolerance and return to prior level of function including sleeping without pain, jogging, and lifting weights without pain. LTG Duration 09/22/23 Assessment Summary Assessment Patient has been making good goal progress toward goals, has made modifications in his work station, is compliant to HEP. Has had difficulty getting into PT due to his schedule and PT schedule. Now he is leaving out of town for a few weeks. He will contact his physician to request more visits if feels the need for more when he returns. Physical Therapy Plan Frequency and Duration Frequency of Treatment Every Other Week Duration of treatment (weeks) 12 Plan of Care Start Date 09/22/23 Plan of Care End Date 12/23/23 Therapeutic Interventions Therapeutic Interventions Home Exercise Program,Joint Mobilizations,Manual Therapy, Patient/Caregiver Education, Self-Care/Home Management,Soft Tissue Mobilization,Taping, Therapeutic Activities, Therapeutic Exercises Modalities Cold Pack/Ice Massage,Electric Stimulation,Hot Packs, Infrared Therapy,Traction- Mechanical,Ultrasound Next Visit Focus/Plan Next Note Type Treatment Note Next Visit Plan Continue progression of strengthening, postural correction, activity modification as needed.
--- NOTE | 2024-01-10 11:57 | PT.OPDS ---
Current Diagnoses Pain in right hip (08/31/23) Low back pain, unspecified (08/31/23) Abnormal posture (08/31/23) Weakness (08/31/23) Visit Care Team Role Provider Type Tayla Adkins MD Attending Provider Non-Staff Family Provider Primary Care Provider Referring Provider Specialty: Medical Address: [address], [address] Email: Visit Number Visit Number 6 Discharge Summary PT-OP-B Current Condition Start: 07/23/23 08:04 Freq: Status: Active Protocol: Document 08/07/23 08:03 SAK (Rec: 08/07/23 09:04 SAK [id number]) Current Condition History of Current Condition Onset Date 2 years Current Complaints LBP, right hip pain History of Current Condition HIstory LBP and right hip pain . No precipitating even. Potentially exercise induced; gets worse when more active. Sometimes interrups sleep, stretching improves it a little. Right famur fracture 6th grade. 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 Reports feels hip very tight especially laterally. Massage at lateral posterior hips dec pain. Denies N/T. Pain ranges from 3-7. Also strained tendon left foot, has ordered custom orthotics for feet. Prior Treatments and Tests 1 episode PT. Treatment Goals Patient/Caregiver Goals Dec pain, improve sleep and function. Would like to run 10k or 1/2 marathon, lift weights without an increase in pain. PT-OP-C Subjective Start: 07/23/23 08:04 Freq: Status: Active Protocol: Document 08/31/23 08:21 SP (Rec: 08/31/23 09:05 SP [id number]) OP-PT Subjective Patient Comments Patient Comments Pt report LB little sore after jogging and ultimate frizbee run/jumping, pushups/pullups. PT-OP-D Balance Start: 07/23/23 08:04 Freq: Status: Active Protocol: Document 07/23/23 08:13 SAK (Rec: 07/23/23 16:32 SAK [id number]) OP-PT Balance Assessment Sitting Balance Static Sitting Balance Ability Normal Dynamic Sitting Balance Ability Normal Standing Balance Static Standing Balance Ability Normal Dynamic Standing Balance Ability Normal Shipley Fall Scale Copyright Permission PT-OP-G Mobility & Gait Start: 07/23/23 08:04 Freq: Status: Active Protocol: Document 07/23/23 08:13 SAK (Rec: 07/23/23 16:32 [facility] [id number]) OP Gait Assessment Gait Gait Assistance Required: Independent Assistive Devices Assistive Device None PT-OP-H Neuro Start: 07/23/23 08:04 Freq: Status: Active Protocol: Document 07/23/23 08:13 SAK (Rec: 07/23/23 16:32 SAK [id number]) Sensation Evaluation Gross Sensation Gross Sensation WNL PT-OP-J Posture/Palpation/Skin Start: 07/23/23 08:04 Freq: Status: Active Protocol: Document 07/23/23 08:13 SAK (Rec: 07/23/23 09:08 SAK [id number]) Posture Evaluation Position Standing Head/C-Spine Posture Forward Head T-Spine Posture Increased Kyphosis Pelvis Posture Anteriorly Tilted Weight Distribution Weight Shifted Left Hip Posture (R) Externally Rotated,(R) Abducted Knee Posture (L) Genu Recurvatum,(R) Genu Recurvatum Palpation Assessment Location SI Palpation Findings Soft Tissue Tightness, Tenderness Palpation Details right PT-OP-K Range of Motion Start: 07/23/23 08:04 Freq: Status: Active Protocol: Document 07/23/23 08:13 SAK (Rec: 07/23/23 16:32 [facility] [id number]) Hip Goniometric Range of Motion Hip Right Flexion w/Knee Flexed 100 Straight Leg Raise 55 Extension 15 Abduction 25 Internal Rotation 35 External Rotation 40 Left Flexion w/Knee Flexed 100 Straight Leg Raise 65 Extension 15 Abduction 40 Internal Rotation 25 External Rotation 40 Hip ROM Limitations Hip ROM Limitations Soft Tissue Tightness Knee Goniometric Range of Motion Knee isaac Knee ROM WFL Yes PT-OP-L Special Tests Start: 07/23/23 08:04 Freq: Status: Active Protocol: Document 07/23/23 08:13 SAK (Rec: 07/23/23 16:32 [facility] [id number]) Special Tests Lumbar Spine Special Tests Straight Leg Raise Test Results - Compression Test Results - Standing Flexion Test Results - Other Special Tests Special Tests SI gapping decreased pain on right PT-OP-M Strength Start: 07/23/23 08:04 Freq: Status: Active Protocol: Document 07/23/23 08:13 SAK (Rec: 07/23/23 09:08 [facility] [id number]) Trunk Strength Trunk Manual Muscle Testing Flexion 4 Good Extension 4 Good Hip Strength Hip Manual Muscle Testing Left Flexion (L2) 4- Good- Extension (S1) 4- Good- Abduction 4+ Good+ Adduction 4+ Good+ External Rotation 4+ Good+ Internal Rotation 4+ Good+ Right Flexion (L2) 4+ Good+ Extension (S1) 4- Good- Abduction 4 Good Adduction 4+ Good+ External Rotation 4 Good Internal Rotation 4 Good Knee Strength Knee Manual Muscle Testing isaac Flexion (S2) 5 Normal Extension (L3) 5 Normal PT-OP-T Assessment and Plan Start: 07/23/23 08:04 Freq: Status: Active Protocol: Document 01/10/24 11:56 [facility] (Rec: 01/10/24 11:56 [facility] [id number]) Physical Therapy Plan Discharge Physical Therapy Discharge Reasons No Longer Attending PT
== END 2024-01-10 14:07 | disposition home or self-care (01) ==
LOC: PHYS 08:15
PROVIDERS: Family Provider Student in an Organized Health Care Education/Training Program; PCP Student in an Organized Health Care Education/Training Program; Referring Provider Student in an Organized Health Care Education/Training Program; Visit Provider Student in an Organized Health Care Education/Training Program
DX: M54.50 Low back pain, unspecified (principal); M25.551 Pain in right hip; R29.3 Abnormal posture; R53.1 Weakness
CPT/HCPCS: 97110; 97140; 97161; 97535

== ENCOUNTER → 2023-11-12 17:16 | Outpatient (CLI) | payer OTHER, SELFPAY ==
--- NOTE | 2023-11-12 17:18 | DI.MRI.S_ITS ---
PROCEDURE: MR BRAIN (IAC) WWO CON INDICATIONS: Tinnitus, bilateral TECHNIQUE: Noncontrast sagittal T1 spin echo, axial FLAIR, axial gradient echo, axial diffusion and ADC through the brain. Axial thin-slice 3D CISS, coronal TruFISP, axial T1 spin echo with fat saturation through the internal auditory canals. After the administration of contrast, thin slice axial and coronal T1 spin echo with fat saturation through the internal auditory canals, and axial T1 spin echo with fat saturation through the brain. COMPARISON: None. FINDINGS: Image quality: Excellent. Cerebellopontine angles: No cerebellopontine angle masses. Inner ear structures appear normally formed. No suspicious enhancement in the internal auditory canal or along the course of the 7th cranial nerve. CSF spaces: Ventricles are normal in size and shape. No extra-axial fluid collections. Basal cisterns are patent. Brain: No intracranial bleeds or mass effects. Tucker-white matter interface is intact. No abnormal intracranial enhancement. Diffusion weighted images demonstrate no acute ischemic insults. Brainstem appears normal. Normal intravascular flow voids are present. Skull and face: Calvarial marrow signal is normal. Orbits appear normal. Sinuses: Sinuses and mastoids are clear. IMPRESSION: No significant abnormality is seen. Specifically, no masses or abnormal enhancement are seen within the cerebellopontine angle cisterns or within the internal auditory canals. Dictated by: Israel Segura M.D. on 11/13/2023 at 12:15 Approved by: Israel Segura M.D. on 11/13/2023 at 12:18
== END ==
LOC: MRI 17:17
PROVIDERS: Family Provider Student in an Organized Health Care Education/Training Program; PCP Student in an Organized Health Care Education/Training Program; Referring Provider Otolaryngology; Visit Provider Otolaryngology
DX: H90.3 Sensorineural hearing loss, bilateral (principal); H93.13 Tinnitus, bilateral
CPT/HCPCS: 70553; A9579